=== PATIENT | female | born 2000 | race Caucasian/White ===

== ENCOUNTER 2021-05-06 12:08 | Outpatient (CLI) | payer OTHER, SELFPAY ==
--- NOTE | ~2021-05-06 | US_ITS ---
EXAMINATION: US OB <=14 wk fetus w TV DATE: 05/06/2021 12:41 INDICATION: Evaluate viability TECHNIQUE: Real-time transabdominal and transvaginal obstetric ultrasound. FINDINGS: No prior studies for comparison. The uterus measures 7.9 x 4.4 x 5.3 cm. There is an intrauterine gestational sac, with pole juan manuel ntified. The crown rump length measures 0.25 cm, which correlates with a estimated gestational age o f 5 weeks 6 days. No heart motions are detected, possibly due to age. Right ovary is unre markable. There is 1.9 cm corpus luteal cyst of the left ovary. IMPRESSION: 1. Intrauterine gestational sac responding to a 5 week 6 day gestation. No heart motions are de tected, possibly due to early gestational age. Recommend follow-up ultrasound and quantitative beta h CG levels as clinically indicated. Reviewed, dictated and finalized at location B. IMPRESSION: 1. Intrauterine gestational sac responding to a 5 week 6 day gestation. No feta l heart motions are detected, possibly due to early gestational age. Recommend follow-up ultrasound and quantitative beta hCG levels as clinically indicated.
[2021-05-10 06:09] LABS: Progesterone 9.2 ng/mL (***)
== END 2021-05-06 12:09 | disposition home or self-care (01) ==
PROVIDERS: PCP Family Medicine; Visit Provider Obstetrics & Gynecology
DX: O36.8390 Maternal care for abnormalities of the fetal heart rate or rhythm, unspecified trimester, not applicable or unspecified (principal); O20.0 Threatened abortion; Z3A.01 Less than 8 weeks gestation of pregnancy
CPT/HCPCS: 36415; 76801; 76817; 84144; 84702

== ENCOUNTER 2021-05-09 16:30 | Outpatient (CLI) | payer OTHER, SELFPAY | END 2021-05-09 16:31 | disposition home or self-care (01) | PROVIDERS: PCP Family Medicine; Visit Provider Obstetrics & Gynecology | DX: O20.0 Threatened abortion (principal) | CPT/HCPCS: 36415; 84702 ==

== ENCOUNTER 2021-05-13 13:46 | Outpatient (CLI) | payer OTHER, SELFPAY ==
--- NOTE | ~2021-05-13 | US_ITS ---
EXAMINATION: US OB <=14 wk fetus w TV DATE: 05/13/2021 14:44 INDICATION: Threatened . Evaluate viability. TECHNIQUE: Real-time transabdominal and transvaginal obstetric ultrasound. FINDINGS: Recent ultrasound dated 05/06/2021 The uterus measures 8.3 x 4.4 x 4.8 cm. There is an intrauterine gestational sac, with pole juan manuel ntified. The crown rump length measures 0.68 cm. heart tones are identified measuring 129 bpm. There is a small subchorionic hemorrhage measuring 5 x 4 x 3 mm. Right ovary is unremarkable. There is a 1.8 cm corpus luteal cyst of the left ovary. Small amount of free fluid in the cul-de-sac. IMPRESSION: 1. SL IUP with an EGA of 6 weeks, 6 days (EDC by initial ultrasound of 12/31/2021). 2: Small subchorionic hemorrhage measuring 5 x 4 x 3 mm. 3: Corpus luteal cyst of the left ovary measuring 1.8 cm. Reviewed, dictated and finalized at location A. IMPRESSION: 1. SL IUP with an EGA of 6 weeks, 6 days (EDC by initial ultrasound of 12/31/19). 2: Small subchorionic hemorrhage measuring 5 x 4 x 3 mm. 3: Corpus luteal cyst of the left ovary measuring 1.8 cm.
== END 2021-05-13 13:47 | disposition home or self-care (01) ==
LOC: ANHIMG 13:50
PROVIDERS: PCP Family Medicine; Visit Provider Obstetrics & Gynecology
DX: O20.0 Threatened abortion (principal); Z3A.01 Less than 8 weeks gestation of pregnancy; O36.8911 Maternal care for other specified fetal problems, first trimester, fetus 1; N83.12 Corpus luteum cyst of left ovary
CPT/HCPCS: 76801; 76817

== ENCOUNTER 2021-07-11 23:53 | Emergency (ER) | payer OTHER, SELFPAY ==
--- NOTE | ~2021-07-11 | XR_ITS ---
EXAMINATION: XR chest 2V DATE: 07/12/2021 00:32 INDICATION: Chest pain TECHNIQUE: PA and lateral views of the chest are obtained. COMPARISON: None available FINDINGS: The lungs are free of acute opacities. There is no pleural effusion or pneumothorax. The ca rdiomediastinal silhouette is normal. The visualized bones and soft tissues are unremarkable. IMPRESSION: 1. No acute cardiopulmonary abnormality. Reviewed, dictated and finalized at location B.
[2021-07-11 23:55] VITALS: BP 119/71; PULSE 85; RESP 16; TEMP 36.2; O2SAT 98
[2021-07-12 00:16] LABS: Basophils Percent Auto 0.3 % (0.2-1.2); Eosinophils Percent Auto 0.3 % (0-4.4); Hematocrit 37.3 % (37.0-47.0); Hemoglobin 12.9 g/dL (12.0-15.0); Immature Granulocyte Absolute 0.04 K/mm3 (0.00-0.031); Immature Granulocyte Percent A 0.4 % (0-0.5); Lymphocytes Absolute Auto 2.17 K/mm3 (0.9-3.2); Lymphocytes Percent Auto 20.8 % (18.3-44.2); Mean Corpuscular HGB Conc 34.6 g/dl (32-36); Mean Corpuscular Hemoglobin 29.9 pg (26-34); Mean Corpuscular Volume 86.5 fl (80-100); Mean Platelet Volume 10.5 fl (7.4-10.4); Monocytes Absolute Auto 0.6 K/mm3 (0.1-0.6); Monocytes Percent Auto 5.8 % (2.6-8.5); Neutrophils Absolute Auto 7.6 K/mm3 (1.3-6.7); Neutrophils Percent Auto 72.4 % (45.5-73.1); Platelet Count Result 295 k/mm3 (150-375); Red Blood Count 4.31 M/mm3 (4.2-5.4); White Blood Count 10.5 K/mm3 (4.5-10.0)
[2021-07-12 00:32] LABS: Prothrombin Time 13.1 Seconds (11.1-14.7)
[2021-07-12 00:33] LABS: Anion Gap 9 mmol/L (8-16); Blood Urea Nitrogen 3 mg/dL (7-17); Calcium 9.7 mg/dL (8.4-10.2); Carbon Dioxide 19 mmol/L (22-30); Chloride 106 mmol/L (98-107); Estimated CRCL calculation 222 ml/min; Estimated Glomerular Filt Rate > 60; Glucose 99 mg/dL (65-110); Partial Thromboplastin Time 27.4 SECONDS (22.3-36.8); Potassium 3.5 mmol/L (3.4-5.0); Sodium 134 mmol/L (137-145)
[2021-07-12 00:44] LABS: Troponin I < 0.012 ng/mL (0.000-0.034)
--- NOTE | 2021-07-12 00:56 | ECG_ITS ---
Measurements Intervals [place] Rate: 77 P: 50 HI: 125 QRS: 63 QRSD: 94 T: 34 QT: 384 QTc: 436 Interpretive Statements SINUS RHYTHM BORDERLINE ST-T WAVE ABNORMALITY- ANT/INF LEADS BASELINE ARTIFACT- I, III, AVL BORDERLINE ECG Electronically Signed On 07-12-2021 7:34:02 CDT by Tristan Ingram D.O.
--- NOTE | 2021-07-12 00:58 | ED.GENADULT ---
HPI - General Adult General Chief complaint: Chest Pain Stated complaint: chest pain Time Seen by Provider: 07/12/21 00:44 History of Present Illness HPI narrative: Patient 21-year-old female presents to emergency department with chief complain of chest pain. The patient reports that she is approximately 15 to 17 weeks and reports this evening she started having a discomfort on the left side of her chest. Patient states achy-like pain reports is worse improved with rest. Patient does report that she has had some nausea and vomiting. Patient states that it is improved with rest. Patient denies diaphoresis reports she has a little bit of shortness of breath with it patient denies fever reports she has not been vaccinated for COVID-19. Related Data Home Medications Medication Instructions Recorded Confirmed omeprazole 20 mg tablet,delayed 20 mg PO DAILY PRN 06/18/20 05/10/21 release docosahexaenoic acid 200 mg capsule mg PO 05/06/21 05/10/21 fluoxetine 10 mg capsule 10 mg PO DAILY cap 05/10/21 05/10/21 Allergies Allergy/AdvReac Type Severity Reaction Status Date / Time No Known Allergies Allergy Verified 06/27/21 14:28 Review of Systems Review of Systems: A 10 system review of systems was completed on the patient and is negative except for what is stated in the HPI. Nursing and ancillary documentation was reviewed. [facility] Past Medical History Medical History Asthma COVID-19 (11/27/20) Gastro-esophageal reflux disease without esophagitis Surgical History Surgical History [place] teeth removed Family History Family History Grandparent Family history of malignant neoplasm of cervix Social History Social History Smoking status: Never smoker Second hand tobacco smoke exposure: No Alcohol intake: never Substance use: never Exam Narrative: GENERAL: Well-appearing, well-nourished, and in no acute distress. HEAD: Normocephalic, atraumatic. EYES: PERRLA and EOMI. ENT: Nares clear, no rhinorrhea or epistaxis. Mucous membranes moist. NECK: Supple. CHEST: Clear to auscultation. No respiratory distress. Chest wall is tender to palpation in the left sternal border HEART: Regular rate and rhythm. No murmur heard. Normal peripheral pulses. ABDOMEN: Soft, nontender, nondistended, normal active bowel sounds. EXTREMITIES: Normal range of motion. No edema. SKIN: Warm, dry, no rash. NEURO: No focal deficits. Alert and oriented x3. PSYCH: Normal mood and affect. Course Course Emergency Course: EKG shows a sinus rhythm rate of [address] elevation or ST depression Vital Signs Vital signs: Vital Signs Temperature 36.2 C L 07/11/21 23:55 Pulse Rate 85 07/11/21 23:55 Respiratory Rate 16 07/11/21 23:55 Blood Pressure 119/71 07/11/21 23:55 Pulse Oximetry 98 07/11/21 23:55 Temperature 36.2 C L 07/11/21 23:55 Pulse Rate 66 07/12/21 01:45 Respiratory Rate 21 H 07/12/21 01:45 Blood Pressure 106/92 H 07/12/21 01:31 Pulse Oximetry 97 07/12/21 01:45 Medical Decision Making Vital Signs Vital Signs: Vital Signs Temperature 36.2 C L 07/11/21 23:55 Pulse Rate 85 07/11/21 23:55 Respiratory Rate 16 07/11/21 23:55 Blood Pressure 119/71 07/11/21 23:55 Pulse Oximetry 98 07/11/21 23:55 Temperature 36.2 C L 07/11/21 23:55 Pulse Rate 66 07/12/21 01:45 Respiratory Rate 21 H 07/12/21 01:45 Blood Pressure 106/92 H 07/12/21 01:31 Pulse Oximetry 97 07/12/21 01:45 Lab Data Result diagrams: 07/12/21 00:09 07/12/21 00:09 Labs: Lab Results 07/12/21 07/12/21 07/12/21 Range/Units 00:09 00:09 00:09 WBC 10.5 H (4.5-10.0) K/mm3 RBC 4.31 (4.2-5.4) M/mm3 Hgb 12
[2021-07-12 01:09] LABS: D Dimer 0.47 ug/mL (<0.48)
[2021-07-12] MEDS: SODIUM CHLORIDE 0.9% IV 1,000 ML 999 ML IV CONT (01:12)
[2021-07-12] MEDS: ASPIRIN 81 MG CHEWABLE TABLET 324 MG PO (01:12)
[2021-07-12] MEDS: METOCLOPRAMIDE HCL INJ 10 MG/2 ML VIAL IV PUSH (01:13)
[2021-07-12 01:15] VITALS: PULSE 78; RESP 14; O2SAT 99
[2021-07-12 01:16] VITALS: BP 116/81; PULSE 97; RESP 17; O2SAT 96
[2021-07-12 01:30] VITALS: PULSE 78; RESP 14; O2SAT 100
[2021-07-12 01:31] VITALS: BP 106/92; PULSE 76; RESP 21; O2SAT 100
[2021-07-12 01:45] VITALS: PULSE 66; RESP 21; O2SAT 97
[2021-07-12 02:35] VITALS: BP 118/77; PULSE 72; RESP 18; O2SAT 100
== END 2021-07-12 02:36 | disposition home or self-care (01) ==
PROVIDERS: Emergency Medicine; Emergency Provider Emergency Medicine; PCP Family Medicine
DX: O26.892 Other specified pregnancy related conditions, second trimester (principal); R07.89 Other chest pain; O99.512 Diseases of the respiratory system complicating pregnancy, second trimester; J45.909 Unspecified asthma, uncomplicated; O99.612 Diseases of the digestive system complicating pregnancy, second trimester; K21.9 Gastro-esophageal reflux disease without esophagitis; Z86.16 Personal history of COVID-19; R94.31 Abnormal electrocardiogram [ECG] [EKG]; Z3A.00 Weeks of gestation of pregnancy not specified
CPT/HCPCS: 36415; 71046; 80048; 84484; 85025; 85380; 85610; 85730; 93005; 96361; 96374; 99284; A9270; J2765; J7030

== ENCOUNTER 2021-07-31 14:05 | Emergency (ER) | payer OTHER, SELFPAY ==
[2021-07-31 14:23] VITALS: BP 123/71; PULSE 78; RESP 16; TEMP 36.7; O2SAT 100
[2021-07-31 14:40] VITALS: BP 123/71; PULSE 78; RESP 18; TEMP 36.7; O2SAT 99
[2021-07-31 14:45] LABS: Basophils Percent Auto 0.3 % (0.2-1.2); Eosinophils Absolute Auto 0.1 K/mm3 (0-0.3); Eosinophils Percent Auto 0.8 % (0-4.4); Hemoglobin 12.1 g/dL (12.0-15.0); Immature Granulocyte Absolute 0.02 K/mm3 (0.00-0.031); Immature Granulocyte Percent A 0.2 % (0-0.5); Lymphocytes Absolute Auto 1.88 K/mm3 (0.9-3.2); Lymphocytes Percent Auto 18.3 % (18.3-44.2); Mean Corpuscular HGB Conc 33.6 g/dl (32-36); Mean Corpuscular Hemoglobin 30.3 pg (26-34); Mean Corpuscular Volume 90.2 fl (80-100); Mean Platelet Volume 10.6 fl (7.4-10.4); Monocytes Absolute Auto 0.5 K/mm3 (0.1-0.6); Monocytes Percent Auto 4.6 % (2.6-8.5); Neutrophils Absolute Auto 7.8 K/mm3 (1.3-6.7); Neutrophils Percent Auto 75.8 % (45.5-73.1); Platelet Count Result 274 k/mm3 (150-375); Red Blood Count 3.99 M/mm3 (4.2-5.4); Red Cell Distribution Width 12.7 % (11.5-14.5); White Blood Count 10.3 K/mm3 (4.5-10.0)
--- NOTE | 2021-07-31 14:49 | ED.ABDPAIN ---
HPI - Abdominal Pain General Chief Complaint: Abdominal Pain Stated Complaint: 18 weeks , abd pain Time Seen by Provider: 07/31/21 14:45 Source: patient Mode of arrival: ambulatory Limitations: no limitations History of Present Illness HPI narrative: Patient is a 20-year-old female, , 18 weeks complaining of lower abdominal pain, 2 out of 10, cramping that started 2 days ago. Patient denies any vaginal bleeding or discharge. Positive for gross movement. Negative for spontaneous rupture of membranes. Patient states that she has had care and ultrasound during this . No complications during this . Related Data Home Medications Medication Instructions Recorded Confirmed omeprazole 20 mg tablet,delayed 20 mg PO DAILY PRN 06/18/20 05/10/21 release docosahexaenoic acid 200 mg capsule mg PO 05/06/21 05/10/21 sertraline 100 mg tablet 100 mg PO DAILY 07/25/21 Allergies Allergy/AdvReac Type Severity Reaction Status Date / Time No Known Allergies Allergy Verified 07/31/21 14:50 Review of Systems Review of Systems: All systems reviewed & are unremarkable except as noted in HPI and below Constitutional: Constitutional: Denies body ache(s), Denies chills, Denies excessive sweating, Denies fatigue, Denies fever(s), Denies headache(s), Denies lethargy, Denies malaise, Denies weakness and Denies weight loss Eyes: Eyes: Denies blurry vision, Denies change in vision and Denies loss of vision ENT: Denies dizziness, Denies ear discharge, Denies headache(s), Denies lip swelling, Denies epistaxis, Denies nasal congestion, Denies neck pain, Denies throat swelling and Denies tongue swelling Cardiovascular: Cardiovascular: Denies chest pain, Denies chest pain at rest, Denies chest pain with activity, Denies diaphoresis, Denies rapid heart rate, Denies edema, Denies irregular heart rhythm, Denies lightheadedness, Denies palpitations, Denies dyspnea and Denies dyspnea on exertion Respiratory: Respiratory: Denies chest congestion, Denies cough, Denies hemoptysis, Denies dyspnea and Denies dyspnea on exertion Gastrointestinal: Gastrointestinal: Denies melena, Denies hematochezia, Denies diarrhea, Denies nausea, Denies vomiting and Denies hematemesis Musculoskeletal: Musculoskeletal: Denies abnormal gait, Denies deformity, Denies joint swelling, Denies limited range of motion, Denies neck pain and Denies numbness Neurologic: Denies Abnormal speech present, Denies abnormal gait, Denies confusion, Denies dizziness, Denies headache(s), Denies focal weakness, Denies loss of vision, Denies numbness, Denies Other visual disturbances, Denies Sensory deficit (Neuro) and Denies weakness Psychiatric: Psychiatric: Denies confusion, Denies depression, Denies auditory hallucinations, Denies homicidal ideation and Denies suicidal ideation Endocrine: Endocrine: Denies cold intolerance, Denies excessive sweating, Denies fatigue, Denies heat intolerance and Denies palpitations Hematologic/Lymphatic: Hematologic/Lymphatic: Denies easy bleeding and Denies easy bruising Allergic/Immunologic: Allergic/Immunologic: Denies lip swelling, Denies throat swelling and Denies tongue swelling PMFSH Past Medical History Medical History Acid reflux Asthma COVID-19 (11/27/20) Gastro-esophageal reflux disease without esophagitis Surgical History Surgical History [place] teeth removed Family History Family History Grandparent Family history of malignant neoplasm of cervix Social History Social History Smoking status: Never smoker Second hand tobacco smoke exposure: No Alcohol intake: never Substance use: never Exam Const: General: cooperative, healthy appearing, comfortable, no acute distres
[2021-07-31 14:54] LABS: Alanine Aminotransferase 13 U/L (4-35); Albumin Level 3.8 g/dL (3.5-5.1); Alkaline Phosphatase 50 U/L (38-126); Anion Gap 6 mmol/L (8-16); Aspartate Amino Transferase 18 U/L (14-36); Bilirubin,Total 0.4 mg/dL (0.2-1.3); Blood Urea Nitrogen 2 mg/dL (7-17); Calcium 9.1 mg/dL (8.4-10.2); Carbon Dioxide 22 mmol/L (22-30); Chloride 107 mmol/L (98-107); Estimated CRCL calculation 221 ml/min; Estimated Glomerular Filt Rate > 60; Glucose 81 mg/dL (65-110); Lipase 40 U/L (23-300); Potassium 3.8 mmol/L (3.4-5.0); Sodium 135 mmol/L (137-145)
[2021-07-31] MEDS: SODIUM CHLORIDE 0.9% IV 1,000 ML 999 ML IV CONT (14:59)
[2021-07-31 15:02] LABS: Add Urine Microscopic? YES; Amorphous Sediment Urine Few; Appearance Urine Cloudy (Clear); Bacteria Urine Trace /hpf; Bilirubin Urine Negative (Negative); Blood Urine Negative (Negative); Color Urine Yellow (Yellow); Glucose Urine UA Negative (Negative); Ketones Urine 1+ mg/dL (Negative); Leukocyte Esterase Ur Negative LEU/UL (Negative); Mucus Urine Rare /lpf; Nitrate Urine Negative (Negative); Protein Urine Negative (Negative); RBC Urine 0-2 /hpf (0-2); Specific Grav Ur 1.012 (1.001-1.035); Squamous Epithelial Cell Urine Few /hpf (Few); Urobilinogen Urine Negative mg/dL (<2.0); WBC Urine 0-3 /hpf
[2021-07-31 16:42] VITALS: BP 115/73; PULSE 80; RESP 18; O2SAT 99
== END 2021-07-31 16:44 | disposition home or self-care (01) ==
PROVIDERS: Emergency Provider Emergency Medicine; PCP Family Medicine
DX: O26.892 Other specified pregnancy related conditions, second trimester (principal); Z3A.18 18 weeks gestation of pregnancy
CPT/HCPCS: 36415; 80053; 81001; 83690; 85025; 96360; 99283; J7030

== ENCOUNTER 2021-10-28 07:24 | Outpatient (CLI) | payer OTHER, SELFPAY | END 2021-10-28 07:25 | disposition home or self-care (01) | LOC: ANHLAB 07:26 | PROVIDERS: PCP Family Medicine; Visit Provider Student in an Organized Health Care Education/Training Program | DX: Z34.90 Encounter for supervision of normal pregnancy, unspecified, unspecified trimester (principal) | CPT/HCPCS: 36415; 86900; 86901 ==

== ENCOUNTER 2021-12-09 02:12 | Inpatient (IN) | payer OTHER, SELFPAY ==
[2021-12-09] VITALS (9 sets, daily range): BP systolic 110–131; BP diastolic 63–79; PULSE 75–97; RESP 16–20; TEMP 36.2–37.3; O2SAT 98–99; BMI 41.8
[2021-12-09] MEDS: LACTATED RINGERS 1,000 ML 125 ML IV CONT (02:46)
[2021-12-09] MEDS: AMPICILLIN 2 GM/NS 100 ML 2 GM/100 ML BAG IVPB (02:47)
[2021-12-09 02:58] LABS: Basophils Absolute Auto 0.1 K/mm3 (0.0-0.1); Basophils Percent Auto 0.3 % (0.2-1.2); Eosinophils Absolute Auto 0.1 K/mm3 (0-0.3); Eosinophils Percent Auto 0.5 % (0-4.4); Hematocrit 35.5 % (37.0-47.0); Hemoglobin 12.4 g/dL (12.0-15.0); Immature Granulocyte Absolute 0.08 K/mm3 (0.00-0.031); Immature Granulocyte Percent A 0.5 % (0-0.5); Lymphocytes Absolute Auto 2.85 K/mm3 (0.9-3.2); Lymphocytes Percent Auto 16.4 % (18.3-44.2); Mean Corpuscular HGB Conc 34.9 g/dl (32-36); Mean Corpuscular Hemoglobin 30.7 pg (26-34); Mean Corpuscular Volume 87.9 fl (80-100); Mean Platelet Volume 10.7 fl (7.4-10.4); Monocytes Absolute Auto 1.3 K/mm3 (0.1-0.6); Monocytes Percent Auto 7.4 % (2.6-8.5); Neutrophils Percent Auto 74.9 % (45.5-73.1); Platelet Count Result 324 k/mm3 (150-375); Red Blood Count 4.04 M/mm3 (4.2-5.4); Red Cell Distribution Width 12.3 % (11.5-14.5); White Blood Count 17.4 K/mm3 (4.5-10.0)
--- NOTE | 2021-12-09 03:02 | LDADM ---
This patient, Eulalia Moore, was admitted to Labor/Delivery/Recovery 105 on 12/09/21 at 02:12. Plans for labor, pain management and were discussed with patient. Patient/family oriented to hospital policies and general routines including ID bracelet, bed and alarms, visiting hours, pain management, procedures, bathroom and other care routines, personal items, smoking policy, room service/diet and guest tray routines, security routines, and visiting hours. Patient/Family are encouraged to report perceived risks to care and to ask questions if they do not understand what they are told or what they should do. See [facility] for further documentation.
--- NOTE | 2021-12-09 03:50 | P.PCNOB_ITS ---
OB - Delivery Note Procedure Delivery date: 12/09/21 Procedure: events: Labor < 37 Weeks Intrapartal events: Precipitous Labor < 3 hours Induction method: none Delivery monitor: external uterine and internal FHT Route of delivery: Laceration Description: Perineal - 1st Degree Delivery repair: vicryl (3-0) Specimen: No Quantitative Blood Loss (ml): 279 Anesthesia type: Local Disposition: floor [place] Baby Date of : 12/09/21 Time of : 03:30 Weeks of gestation at delivery: 36 gender: Female Weight (pounds): 6 Weight (ounces): 11 presentation: vertex position: Right Occiput Anterior Placenta delivery description: Spontaneous cord vessel description: 3 Vessels and Clamped/Cut score one minute: 9 score five minutes: 9
[2021-12-09] MEDS: METHYLERGONOVINE MALEATE 0.2 MG/ML VIAL IM (06:24)
[2021-12-09] MEDS: BENZOCAINE 20% AER SPR (*SP) 56 GM CAN 1 SPRAY (06:25)
[2021-12-09] MEDS: WITCH HAZEL 40 PADS 1 PAD (06:25)
--- NOTE | 2021-12-09 06:50 | OBPPTRN ---
0627 Patient transferred to post room #285 via W/C. Support person present. Oriented to unit, room, information board, rooming in, admission packet and security measures. Patient verbalizes understanding.
--- NOTE | 2021-12-09 08:34 | PC.NURSE ---
Mother verbalizes she is able to independently latch with appropriate positioning/alignment. She denies any nipple discomfort, is feeding as required and waking to feed if needed. Infant has had [# of feedings] effective feedings in the past 24 hours, and is currently meeting outcomes for weight, output, jaundice and feeding frequencies. Mother states she feels confident to continue effective at home. Reviewed transition to breast milk, signs of adequate intake, and engorgement/relief. Instructed to call ICP if intake/output less than required. Reviewed regular medications mother is taking. Information provided per Lola. Reviewed community resources on the [facility] website and in the Mom/Baby guide. Information on outpatient services provided. Mother has no further questions at this time.
[2021-12-09 11:22] LABS: Rapid Plasma Reagin Non-Reactive (NonReactive)
--- NOTE | 2021-12-09 13:00 | PC.NURSE ---
0730 - Mother verbalizes she is able to independently latch with appropriate positioning/alignment. She denies any nipple discomfort, is feeding as required and waking to feed if needed. is currently meeting outcomes for weight, output, jaundice and feeding frequencies. Mother states she does not require feeding assist/education at this time. Reviewed resources in the Mom/Baby guide. Instructed mother to call out for future feedings for a latch assessment. 0840 - Consulted with patient, reviewed feeding cues, frequencies, duration of feedings, feeding elimination flow sheet, and signs of adequate intake. Demonstrated stimulation techniques to wake for feeding. Assisted with to breast. Reviewed positioning/alignment, holding breast and asymmetrical latch on. Infant was able to latch correctly. nursed eagerly, with steady draws and occasional swallowing noted. Reviewed signs of a correct latch, effective nursing and suck swallow ratio. Infant was able to maintain latch without discomfort to mother. Nipple care reviewed. Instructed mother to call out for RN assistance if she is unable to latch infant for feeding or she has discomfort with nursing. Instructed feeding should be initiated three hours from start of last feeding or if feeding cues are noted before. Mother voiced understanding of information shared.
[2021-12-10 05:50] LABS: Hematocrit 29.3 % (37.0-47.0); Hemoglobin 9.8 g/dL (12.0-15.0)
[2021-12-10 08:00] VITALS: BP 112/71; PULSE 82; RESP 16; TEMP 36.6; O2SAT 98
[2021-12-10] MEDS: POLYSACCHARIDE IRON COMPLEX 150 MG CAPSULE PO ×2 (08:02→16:14)
[2021-12-10] MEDS: DOCUSATE SODIUM 100 MG CAPSULE PO ×2 (08:02→16:14)
--- NOTE | 2021-12-10 08:25 | P.PNOB_ITS ---
OB - PN: Subj Subjective Date/time seen: 12/10/21 08:25 She is breastfeding and supplementing. No lightheadedness or dizziness. Patient comments: pain well controlled, tolerating diet and other (Decreasing lochia.) [place] baby status: doing well and nursing well OB - PN: Obj Data Labs CBC & Chem 7: 12/10/21 04:52 Labs: Laboratory Results - last 24 hr 12/09/21 12/10/21 02:42 04:52 Hgb 9.8 L Hct 29.3 L RPR Non-reactive OB - PN A/P Plan day: 1 Plan: routine care Comments: Patient doing well. Continue routine care. Time Spent With Patient Time: Total time spent is greater than 50% in coordination of care (as doc umented) at patient's floor/unit and/or counseling patient: Exam Psych: Affect: normal affect Other: Abd: fundus firm below umbilicus, nontender Perineum: healing Ext: nontender
--- NOTE | 2021-12-10 15:13 | PC.NURSE ---
8264 - Primary RN requested a consult to the room to assist with infant that had been placed skin to skin. RN entered room 285 and mother was feeding infant a bottle. It had also been reported to me that mother had fed the baby a bottle last night as well. Mother states baby wasn't interested and she was going to bottle feed and she might attempt to breastfeed later. Encouraged mother to call out for RN assistance if she is unable to latch infant for feeding or she has discomfort with nursing. Instructed feeding should be initiated three hours from start of last feeding or if feeding cues are noted before. Mother voiced understanding of information shared. Reported to primary RN the new plan. per mothers request.
[2021-12-10 19:07] VITALS: BP 132/79; PULSE 85; RESP 18; TEMP 36.9
[2021-12-11] MEDS: POLYSACCHARIDE IRON COMPLEX 150 MG CAPSULE PO (08:20)
--- NOTE | 2021-12-11 08:33 | PM.OBPNVD ---
OB - PN: Subj Subjective Date/time seen: 12/11/21 08:33 Patient doing well this AM. Denies any pain. Scant lochia. Ambulating well. OB - PN: Obj Data Labs CBC & Chem 7: 12/10/21 04:52 OB - PN A/P Assessment and Plan (1) Normal spontaneous vaginal delivery: Code(s): O80 - Encounter for full-term uncomplicated delivery Status: Acute Assessment and Plan: PPD#2 doing well continue routine care dc home today in stable condition emergency precautions reviewed f/u in office in 4-6 weeks for visit Time Spent With Patient Time: Total time spent is greater than 50% in coordination of care (as documented) at patient's floor/unit and/or counseling patient: Exam Const: General: cooperative, healthy appearing, comfortable and no acute distress GI: Inspection: non-distended GI Palp: Yes Soft to palpation and No Tenderness to palpation present (GI) Other: fundus firm below umbilicus Extrem: Right lower extremity: no edema Left lower extremity: no edema Other: no calf tenderness Psych: Appearance: grossly normal Mental Status: mental status grossly normal
[2021-12-11 08:35] VITALS: BP 119/74; PULSE 75; RESP 18; TEMP 36.8; O2SAT 100
--- NOTE | 2021-12-11 08:37 | PM.OBDSVD ---
DS: Admitting Diagnosis Discharge Date 12/11/21 Admitting Diagnosis Labor OB - DS: Summary OB Procedures : None OB Procedures Intrapartum: Spontaneous Vag Delivery OB Procedures: : None Time Spent with Patient Time attestation: Total time spent providing and/or coordinating discharge services: Discharge Plan Discharge Attending physician on discharge: Maria Isabel Macnia Discharging Clinician: Maria Isabel Mancia Anticipated Discharge Date/Time: 12/11/21 08:37 Patient Disposition: Home, Self-Care Activity: as tolerated and pelvic rest Diet: regular Discharge Instructions: Call office ([phone]) to schedule a visit in 4-6 weeks. You may take Ibuprofen 600mg every 6 hours as needed for pain. Pain medication may make you constipated. It may be helpful to take an [id number] stool softener, such as Colace and/or Senokot, along with the pain medication to help lessen constipation. Call office or go to ED for pain not controlled with medication, headache, chest pain, shortness of breath, fever, chills, persistent nausea or vomiting, severe abdominal pain, heavy vaginal bleeding >2 pads/hour, foul vaginal discharge or odor, or problems with your breasts. Patient Instructions: Antibiotic Form Stand Alone Forms: General Discharge Information Follow-up/Referrals: Maria Isabel Mancia MD [Physician] - Discharge Medications: Continued sertraline 100 mg tablet 100 mg PO DAILY RF: 0 omeprazole 20 mg tablet,delayed release (DR/EC) 20 mg PO DAILY Qty: 30 RF: 11 loratadine [Claritin] 10 mg tablet 10 mg PO DAILY PRN (Reason: allergy symptoms) RF: 0 DHA 200 mg capsule PO RF: 0 Date of admission: 12/09/21 02:12 Primary Care Provider: Dejan Perla Admitting Provider: Maria Isabel Mancia Attending physician on admission: Maria Isabel Mancia Condition: Stable
--- NOTE | 2021-12-11 11:20 | PC.NURSE ---
Patient viewed the discharge video Mother & Baby Care, The First Two Weeks . Patient was given the opportunity and encouraged to ask questions. Patient verbalized understanding of information shared and has been given the mother/baby guide for home reference.
[2021-12-11 11:55] VITALS: BP 113/75; PULSE 80; RESP 16; O2SAT 100
[2021-12-11] MEDS: diphenhydrAMINE HCl CAP 25 MG CAPSULE PO (12:16)
[2021-12-12 11:27] VITALS: BP 136/72; PULSE 82; RESP 20; TEMP 36.9; O2SAT 100
== END 2021-12-11 13:05 | disposition home or self-care (01) | DRG 807 ==
LOC: ANHLDR 05:58 → ANHOB2 06:48
PROVIDERS: Admitting Provider Obstetrics & Gynecology; PCP Family Medicine; Visit Provider Student in an Organized Health Care Education/Training Program
DX: O62.3 Precipitate labor (principal); Z37.0 Single live birth; O70.0 First degree perineal laceration during delivery; Z3A.36 36 weeks gestation of pregnancy; Z23 Encounter for immunization
CPT/HCPCS: 36415; 84112; 85014; 85018; 85025; 86592; 86850; 86900; 86901; 90471; 90653; A9270; G0008; J0290; J2210; J2795; J7120

== ENCOUNTER 2023-07-06 08:43 | Emergency (ER) | payer OTHER, SELFPAY ==
--- NOTE | 2023-07-06 08:48 | ED.URI ---
HPI - URI/Sore Throat General Chief Complaint: Upper Respiratory Infection Stated Complaint: Sore Throat Time Seen by Provider: 07/06/23 09:05 Source: patient and RN notes reviewed Mode of arrival: ambulatory Limitations: no limitations History of Present Illness HPI Narrative: 23-year-old female presents with concern for sore throat, fever, body aches. She reports her symptoms started yesterday. Reports her has similar symptoms. She reports mild runny nose. She reports occasional headache. She denies nasal congestion, stomachache. MD elicited complaint: sore throat Related Data Home Medications Medication Instructions Recorded Confirmed loratadine 10 mg tablet (Claritin) 10 mg PO DAILY PRN allergy symptoms 09/30/21 07/06/23 sertraline 100 mg tablet 150 mg PO DAILY 08/29/22 07/06/23 bupropion HCl 150 mg 24 hr tablet, 150 mg PO QAM 09/29/22 07/06/23 extended release (Wellbutrin XL) clonazepam 0.5 mg tablet 0.25 mg PO DAILY PRN anxiety 09/29/22 07/06/23 Allergies Allergy/AdvReac Type Severity Reaction Status Date / Time No Known Allergies Allergy Verified 07/06/23 08:52 Review of Systems Review of Systems: CONSTITUTIONAL: Reports malaise, chills, sweats, fever. EYES: Denies visual changes, redness, or discharge. ENT: Reports rhinorrhea, sore throat. Denies congestion, sinus pain, otalgia CARDIOVASCULAR: Denies chest pain, palpitations, or edema. RESPIRATORY: Denies cough. Denies dyspnea. GASTROINTESTINAL: Denies abdominal pain, nausea, vomiting, diarrhea SKIN: Denies rash or itching. MUSCULOSKELETAL: Reports myalgia. NEUROLOGIC: Reports headache. All systems reviewed & are unremarkable except as noted in HPI and below PMFSH Past Medical History Medical History (Updated 07/06/23 @ 09:20 by Erika Angulo NP) Acne Anemia (12/10/21) hemoglobin 9.8 with hematocrit 29.3 on 12/10/2021. Hemoglobin 13.3 with hematocrit 40.8 on 03/31/2022. hemoglobin 13.4 on 09/29/2022. Asthma BMI 40.0-44.9, adult COVID-19 (11/27/20) Diarrhea (~10/2022) Encounter for contraceptive surveillance Encounter for counseling regarding contraception Encounter for visit Encounter for supervision of normal first in second trimester Encounter for supervision of normal first in third trimester size inconsistent with dates Gastro-esophageal reflux disease without esophagitis Iron deficiency (03/31/22) iron 49 with 12% saturation and ferritin 7 with hemoglobin 13.3 on 03/31/2022. Iron 97 with 28% saturation and ferritin 26 with hemoglobin 13.4 on 09/29/2022. Irregular menses Low TSH level (03/31/22) TSH slightly low at 0.3 on 03/31/2022. TSH normal at 4.02 with free T4 0.9 on 09/29/2022. Maxillary sinusitis, acute Menstrual period late Missed period Mixed hyperlipidemia (03/31/22) total cholesterol 246, triglycerides 129, HDL 56, LDL 164 on 03/31/2022. Total cholesterol 233, triglycerides 178, HDL 46, LDL 156 ratio of 5.1 on 09/29/2022. Morbid obesity with BMI of 40.0-44.9, adult Morbid obesity with BMI of 45.0-49.9, adult Nausea and vomiting Normal spontaneous vaginal delivery examination or test, unconfirmed Rh negative status during Right otitis media Tonsillar hypertrophy Tonsillitis (~03/2022) [place] screen 04/18/2022 was negative. Vitamin B12 deficiency (03/31/22) Vitamin B12 low at 383 with goal greater than 400 with folic acid at 18.8 hemoglobin 13.3 on 03/31/2022. Level normal at 1040 with hemoglobin 13.4 on 09/29/2022. Surgical History Surgical History [place] teeth removed Family History Family History Grandparent Family history of malignant neoplasm of cervix Mother Hypertension Social History Social History (Updated 09/29/22 @ 08:32 by Gladys Jo MA) Smoking status: Never smoker Second hand tobacco smoke exp
[2023-07-06 08:57] VITALS: BP 108/73; PULSE 80; RESP 16; TEMP 36.6; O2SAT 98
== END 2023-07-06 09:25 | disposition home or self-care (01) ==
PROVIDERS: Emergency Provider Nurse Practitioner; PCP Family Medicine
DX: J02.0 Streptococcal pharyngitis (principal); J45.909 Unspecified asthma, uncomplicated; K21.9 Gastro-esophageal reflux disease without esophagitis; E78.2 Mixed hyperlipidemia; E66.01 Morbid (severe) obesity due to excess calories; Z68.41 Body mass index [BMI] 40.0-44.9, adult; Z86.16 Personal history of COVID-19
CPT/HCPCS: 87880; 99213; G0463

== ENCOUNTER 2023-09-15 14:44 | Outpatient (CLI) | payer OTHER, SELFPAY ==
[2023-09-15 15:24] LABS: Basophils Percent Auto 0.3 % (0.2-1.2); Eosinophils Absolute Auto 0.1 K/mm3 (0-0.3); Eosinophils Percent Auto 0.7 % (0-4.4); Hematocrit 39.4 % (37.0-47.0); Hemoglobin 13.2 g/dL (12.0-15.0); Immature Granulocyte Absolute 0.03 K/mm3 (0.00-0.031); Immature Granulocyte Percent A 0.3 % (0-0.5); Lymphocytes Absolute Auto 2.01 K/mm3 (0.9-3.2); Lymphocytes Percent Auto 16.8 % (18.3-44.2); Mean Corpuscular HGB Conc 33.5 g/dl (32-36); Mean Corpuscular Hemoglobin 30.6 pg (26-34); Mean Corpuscular Volume 91.4 fl (80-100); Mean Platelet Volume 10.7 fl (7.4-10.4); Monocytes Absolute Auto 0.6 K/mm3 (0.1-0.6); Monocytes Percent Auto 5.4 % (2.6-8.5); Neutrophils Absolute Auto 9.2 K/mm3 (1.3-6.7); Neutrophils Percent Auto 76.5 % (45.5-73.1); Platelet Count Result 312 k/mm3 (150-375); Red Blood Count 4.31 M/mm3 (4.2-5.4); Red Cell Distribution Width 12.6 % (11.5-14.5)
[2023-09-15 15:34] LABS: Anion Gap 9 mmol/L (8-16); Blood Urea Nitrogen 6 mg/dL (7-17); Calcium 9.4 mg/dL (8.4-10.2); Carbon Dioxide 21 mmol/L (22-30); Chloride 107 mmol/L (98-107); Estimated Glomerular Filt Rate > 60; Glucose 107 mg/dL (65-110); Potassium 3.5 mmol/L (3.4-5.0); Sodium 137 mmol/L (137-145)
[2023-09-15 16:24] LABS: Appearance Urine Cloudy (Clear); Bacteria Urine None Seen /hpf; Bilirubin Urine Negative (Negative); Blood Urine Negative (Negative); Color Urine Dark Yellow (Yellow); Glucose Urine UA Negative (Negative); Ketones Urine 2+ mg/dL (Negative); Leukocyte Esterase Ur Trace LEU/UL (NEGATIVE); Mucus Urine Present /lpf; Need Manual Microscopic Reviewed; Nitrate Urine Negative (Negative); Protein Urine Negative (Negative); Specific Grav Ur 1.031 (1.001-1.035); Squamous Epithelial Cell Urine Few /hpf (Few); WBC Urine 0-5 /hpf (0-3); pH Urine 5.5 (5.0-9.0)
[2023-09-15 16:25] LABS: Add Urine Microscopic? YES
== END 2023-09-15 14:45 | disposition home or self-care (01) ==
PROVIDERS: PCP Family Medicine; Visit Provider Obstetrics & Gynecology
DX: O20.0 Threatened abortion (principal); E11.22 Type 2 diabetes mellitus with diabetic chronic kidney disease; I12.9 Hypertensive chronic kidney disease with stage 1 through stage 4 chronic kidney disease, or unspecified chronic kidney disease; N18.4 Chronic kidney disease, stage 4 (severe); Z3A.00 Weeks of gestation of pregnancy not specified
CPT/HCPCS: 36415; 80048; 81001; 84702; 85025

== ENCOUNTER 2023-12-31 12:22 | Emergency (ER) | payer OTHER, SELFPAY ==
[2023-12-31 12:23] VITALS: BP 121/67; PULSE 84; RESP 16; TEMP 36.4; O2SAT 98
--- NOTE | 2023-12-31 12:47 | ED.NAVMDI ---
HPI - Nausea/Vomiting/Diarrhea General Chief complaint: Nausea/Vomiting/Diarrhea <Ledy Garcia PA-C - Last Filed: 12/31/23 14:11> Stated complaint: nausea, vomiting <Ledy Garcia PA-C - Last Filed: 12/31/23 14:11> Time Seen by Provider: 12/31/23 12:37 <Ledy Garcia PA-C - Last Filed: 12/31/23 14:11> History of Present Illness HPI Narrative: 23-year-old female, , currently 21 weeks and 2 days gestation reports for evaluation for nausea and vomiting. Patient states she is head nausea vomiting throughout her entire , around 1-4 episodes of emesis daily. Her OBGYN is Dr. Bo. States she has been trialed on Zofran, Reglan, promethazine and promethazine with some relief. She was started on Tigan yesterday by her OBGYN and is unsure if she has given this medication enough time to work. She called her OBs office today and was advised to come to the ER for further evaluation given she is having difficulty keeping down food and fluids now. She denies abdominal pain, vaginal bleeding or spotting, chest pain shortness of breath, cough or congestion, dysuria, hematuria, urinary frequency or urgency. States she had the same issue with her 1st . States this has been uncomplicated other than diagnosis of marginal cord insertion during her 20 week anatomy scan. <Ledy Garcia PA-C - Last Filed: 12/31/23 14:11> Related Data Home medications: Home Medications Medication Instructions Recorded Confirmed loratadine 10 mg tablet (Claritin) 10 mg PO DAILY PRN allergy symptoms 09/30/21 10/12/23 bupropion HCl 150 mg 24 hr tablet, 150 mg PO . Q.h.s. 10/12/23 10/12/23 extended release (Wellbutrin XL) metoclopramide HCl 5 mg tablet 5 mg PO DAILY 10/12/23 10/12/23 (Reglan) promethazine 25 mg tablet 25 mg PO QID PRN 10/12/23 10/12/23 sertraline 100 mg tablet 200 mg PO . q.h.s. 10/12/23 10/12/23 <Ledy Garcia PA-C - Last Filed: 12/31/23 14:11> Allergies/Adverse reactions: Allergies Allergy/AdvReac Type Severity Reaction Status Date / Time No Known Allergies Allergy Verified 12/31/23 12:23 <Ledy Garcia PA-C - Last Filed: 12/31/23 14:11> Review of Systems Review of Systems: CONSTITUTIONAL: Denies fever, chills, or sweats. EYES: Denies visual changes, redness, or discharge. ENT: Denies rhinorrhea, congestion, sore throat, or otalgia. CARDIOVASCULAR: Denies chest pain, palpitations, or edema. RESPIRATORY: Denies cough or dyspnea. GASTROINTESTINAL: See HPI GENITOURINARY: Denies dysuria or hematuria. SKIN: Denies rash or itching. MUSCULOSKELETAL: Denies back pain, joint pain, or myalgia. NEUROLOGIC: Denies headache, numbness, or weakness. PSYCHIATRIC: Denies anxiety or depression. <Ledy Garcia PA-C - Last Filed: 12/31/23 14:11> [facility] Past Medical History Medical History: Medical History (Updated 12/31/23 @ 14:09 by Ledy Garcia PA-C) Acne Acute non-recurrent maxillary sinusitis Anemia (12/10/21) hemoglobin 9.8 with hematocrit 29.3 on 12/10/2021. Hemoglobin 13.3 with hematocrit 40.8 on 03/31/2022. hemoglobin 13.4 on 09/29/2022. Asthma BMI 40.0-44.9, adult COVID-19 (11/27/20) Diarrhea (~10/2022) Encounter for contraceptive surveillance Encounter for counseling regarding contraception Encounter for visit Encounter for supervision of normal first in second trimester Encounter for supervision of normal first in third trimester size inconsistent with dates Gastro-esophageal reflux disease without esophagitis Iron deficiency (03/31/22) iron 49 with 12% saturation and ferritin 7 with hemoglobin 13.3 on 03/31/2022. Iron 97 with 28% saturation and ferritin 26 with hemoglobin 13.4 on 09/29/2022. Irregular menses Low TSH level (03/31/22) TSH slightly low at 0.3 on 03/31/2022. TSH normal at 4.02 with free T4 0.9 on 09/29/2022. Maxillary sinusitis, acute Menstrual period late Missed
[2023-12-31] MEDS: ONDANSETRON INJ 4 MG/2 ML VIAL IV PUSH (13:03)
[2023-12-31] MEDS: SODIUM CHLORIDE 0.9% IV 1,000 ML 999 ML IV CONT (13:04)
[2023-12-31 13:07] LABS: Appearance Urine Slightly Cloudy (Clear); Blood Urine Negative (Negative); Color Urine Yellow (Yellow); Glucose Urine UA Negative (Negative); Ketones Urine Trace mg/dL (Negative); Nitrate Urine Negative (Negative); Protein Urine 2+ mg/dL (Negative); Specific Grav Ur >= 1.030 (1.001-1.035); pH Urine 6.5 (5.0-9.0)
[2023-12-31 13:08] LABS: Add Urine Microscopic? YES; Bilirubin Urine 1+ (Negative); Leukocyte Esterase Ur Negative LEU/UL (Negative)
[2023-12-31 13:16] LABS: Basophils Percent Auto 0.3 % (0.2-1.2); Eosinophils Absolute Auto 0.1 K/mm3 (0-0.3); Eosinophils Percent Auto 0.5 % (0-4.4); Hematocrit 36.1 % (37.0-47.0); Hemoglobin 12.2 g/dL (12.0-15.0); Immature Granulocyte Absolute 0.06 K/mm3 (0.00-0.031); Immature Granulocyte Percent A 0.4 % (0-0.5); Lymphocytes Absolute Auto 2.17 K/mm3 (0.9-3.2); Lymphocytes Percent Auto 14.8 % (18.3-44.2); Mean Corpuscular HGB Conc 33.8 g/dl (32-36); Mean Corpuscular Hemoglobin 31.4 pg (26-34); Mean Corpuscular Volume 92.8 fl (80-100); Mean Platelet Volume 10.6 fl (7.4-10.4); Monocytes Absolute Auto 0.8 K/mm3 (0.1-0.6); Monocytes Percent Auto 5.3 % (2.6-8.5); Neutrophils Absolute Auto 11.5 K/mm3 (1.3-6.7); Neutrophils Percent Auto 78.7 % (45.5-73.1); Platelet Count Result 272 k/mm3 (150-375); Red Blood Count 3.89 M/mm3 (4.2-5.4); Red Cell Distribution Width 12.3 % (11.5-14.5); White Blood Count 14.6 K/mm3 (4.5-10.0)
[2023-12-31 13:17] LABS: Mucus Urine Present /lpf; Squamous Epithelial Cell Urine Moderate /hpf (Few); WBC Urine 0-5 /hpf
[2023-12-31 13:27] LABS: Alanine Aminotransferase 10 U/L (6-35); Albumin Level 3.7 g/dL (3.5-5.1); Alkaline Phosphatase 66 U/L (38-126); Anion Gap 6 mmol/L (8-16); Aspartate Amino Transferase 18 U/L (14-36); Bilirubin,Total 0.4 mg/dL (0.2-1.3); Blood Urea Nitrogen 5 mg/dL (7-17); Calcium 9.1 mg/dL (8.4-10.2); Carbon Dioxide 23 mmol/L (22-30); Chloride 107 mmol/L (98-107); Estimated CRCL calculation 185 ml/min; Estimated Glomerular Filt Rate > 60; Glucose 75 mg/dL (65-110); Potassium 3.9 mmol/L (3.4-5.0); Sodium 136 mmol/L (137-145)
[2023-12-31 15:08] VITALS: BP 125/62; PULSE 75; RESP 16; O2SAT 97
== END 2023-12-31 15:08 | disposition home or self-care (01) ==
PROVIDERS: Emergency Provider Physician Assistant; PCP Family Medicine
DX: O21.9 Vomiting of pregnancy, unspecified (principal); O99.012 Anemia complicating pregnancy, second trimester; D50.0 Iron deficiency anemia secondary to blood loss (chronic); O99.512 Diseases of the respiratory system complicating pregnancy, second trimester; J45.909 Unspecified asthma, uncomplicated; O99.282 Endocrine, nutritional and metabolic diseases complicating pregnancy, second trimester; E78.2 Mixed hyperlipidemia; E53.8 Deficiency of other specified B group vitamins; O99.612 Diseases of the digestive system complicating pregnancy, second trimester; K21.9 Gastro-esophageal reflux disease without esophagitis; O99.212 Obesity complicating pregnancy, second trimester; E66.01 Morbid (severe) obesity due to excess calories; Z86.16 Personal history of COVID-19; Z3A.21 21 weeks gestation of pregnancy
CPT/HCPCS: 36415; 80053; 81001; 85025; 96361; 96374; 99284; J2405; J7030

== ENCOUNTER 2024-04-23 08:05 | Inpatient (IN) | payer OTHER, SELFPAY ==
[2024-04-23] VITALS (23 sets, daily range): BP systolic 75–128; BP diastolic 48–100; PULSE 68–259; RESP 16; TEMP 36.6–36.8; O2SAT 100
[2024-04-23] MEDS: LACTATED RINGERS 1,000 ML 125 ML IV CONT (09:15)
--- NOTE | 2024-04-23 09:39 | WPDOBADMIT ---
Obstetrics - Admit Note Admission Note: record reviewed. No pertinent additions to the history and/or any subsequent changes in the physical findings that are not consistent with the expected course of the were found. Additions to the history and/or subsequent changes in the physical findings follow. admit for SROM, forebag ruptured AROM. IUPC placed. SVE 4-5/70/-2, anticipate vaginal delivery
[2024-04-23 09:46] LABS: Basophils Absolute Auto 0.1 K/mm3 (0.0-0.1); Basophils Percent Auto 0.3 % (0.2-1.2); Eosinophils Absolute Auto 0.1 K/mm3 (0-0.3); Eosinophils Percent Auto 0.7 % (0-4.4); Hematocrit 39.5 % (37.0-47.0); Hemoglobin 13.1 g/dL (12.0-15.0); Immature Granulocyte Absolute 0.13 K/mm3 (0.00-0.031); Immature Granulocyte Percent A 0.8 % (0-0.5); Lymphocytes Absolute Auto 3.04 K/mm3 (0.9-3.2); Lymphocytes Percent Auto 18.4 % (18.3-44.2); Mean Corpuscular HGB Conc 33.2 g/dl (32-36); Mean Corpuscular Hemoglobin 30.9 pg (26-34); Mean Corpuscular Volume 93.2 fl (80-100); Mean Platelet Volume 11.4 fl (7.4-10.4); Monocytes Absolute Auto 0.9 K/mm3 (0.1-0.6); Monocytes Percent Auto 5.6 % (2.6-8.5); Neutrophils Absolute Auto 12.3 K/mm3 (1.3-6.7); Neutrophils Percent Auto 74.2 % (45.5-73.1); Platelet Count Result 255 k/mm3 (150-375); Red Blood Count 4.24 M/mm3 (4.2-5.4); Red Cell Distribution Width 12.5 % (11.5-14.5); White Blood Count 16.6 K/mm3 (4.5-10.0)
[2024-04-23 10:35] LABS: HIV 1/2 Ab P24 Ag Result Negative (Negative)
[2024-04-23] MEDS: OXYTOCIN 30 UNITS/NS 500 ML 30 UNITS/500 ML BAG IV CONT (10:38)
--- NOTE | 2024-04-23 10:41 | LDADM ---
This patient, Eulalia Torres, was admitted to Labor/Delivery/Recovery 107 on 04/23/24 at 08:05. Plans for labor, pain management and were discussed with patient. Patient/family oriented to hospital policies and general routines including ID bracelet, bed and alarms, visiting hours, pain management, procedures, bathroom and other care routines, personal items, smoking policy, room service/diet and guest tray routines, security routines, and visiting hours. Patient/Family are encouraged to report perceived risks to care and to ask questions if they do not understand what they are told or what they should do. See OBIX for further documentation.
--- NOTE | 2024-04-23 12:16 | PM.OBPRVD ---
OB - Vaginal Delivery Note Procedure Delivery date: 04/23/24 Intrapartal Events: Decelerations Induction method: None Delivery augmentation: Rupture of Membranes and Pitocin Delivery monitor: Internal FHT and Internal Uterine Route of delivery: Laceration Description: None Specimen: No Quantitative Blood Loss (ml): 150 Anesthesia type: None Disposition: Floor [place] Baby Date of : 04/23/24 Time of : 12:07 Weeks of gestation at delivery: 37 gender: Male Weight (pounds): 7 Weight (ounces): 3 presentation: vertex position: Left Occiput Anterior Placenta delivery description: Spontaneous Cord Vessel Description: 3 Vessels, Clamped/Cut and Delayed Cord Clamping score one minute: 8 score five minutes: 9 Narrative: mother and baby in stable condition
[2024-04-23] MEDS: OXYTOCIN 30 UNITS/NS 500 ML 30 UNITS/500 ML BAG 125 UNITS IV CONT (12:43)
[2024-04-23] MEDS: IBUPROFEN 600 MG TABLET PO ×2 (13:38→21:18)
[2024-04-23] MEDS: WITCH HAZEL 40 PADS 1 PAD TOPICAL (14:19)
[2024-04-23] MEDS: BENZOCAINE 20% AER SPR (*SP) 56 GM CAN 1 SPRAY TOPICAL (14:19)
--- NOTE | 2024-04-23 14:53 | OBPPTRN ---
1430 - Patient Eulalia Lewis transferred to post room #288 via Wheelchair, baby David at her side in crib. Support person present. Oriented to unit, room, information board, rooming in, admission packet and security measures. Patient verbalizes understanding. Pit hung and resumed at this time.
[2024-04-23] MEDS: DOCUSATE SODIUM 100 MG CAPSULE PO (16:18)
[2024-04-24 00:45] VITALS: BP 115/79; PULSE 68; RESP 16; TEMP 36.4; O2SAT 100
[2024-04-24] MEDS: IBUPROFEN 600 MG TABLET PO ×2 (03:56→09:44)
[2024-04-24 04:16] LABS: Hematocrit 31.9 % (37.0-47.0); Hemoglobin 10.8 g/dL (12.0-15.0)
[2024-04-24 09:15] VITALS: BP 115/67; PULSE 76; RESP 16; TEMP 36.4; O2SAT 99
[2024-04-24] MEDS: DOCUSATE SODIUM 100 MG CAPSULE PO (09:44)
[2024-04-24] MEDS: MULTIVIT/MIN/PREN/FOL AC/IRON TABLET 1 TAB PO (09:44)
[2024-04-24] MEDS: WITCH HAZEL 40 PADS 1 PAD TOPICAL (09:45)
--- NOTE | 2024-04-24 11:58 | PM.OBPNVD ---
OB - PN: Subj Subjective Date/time seen: 04/24/24 11:58 Interval history: doing well desires d/c OB - PN: Obj Data Labs 04/24/24 03:51 Labs: Laboratory Results - last 24 hr 04/24/24 03:51 Hgb 10.8 L Hct 31.9 L OB - PN A/P Plan day: 1 Plan: routine care and discharge home Time Spent With Patient Time: Total time spent is greater than 50% in coordination of care (as documented) at patient's floor/unit and/or counseling patient: Review of Systems Review of Systems: All systems reviewed & are unremarkable except as noted in HPI and below Exam Const: General: cooperative and healthy appearing Resp: Effort & Inspection: normal respiratory effort Cardio: Rate: regular rate Rhythm: regular rhythm Skin: General skin exam: normal color Neuro: General: patient oriented x3
--- NOTE | 2024-04-24 12:00 | PM.OBDSVD ---
DS: Admitting Diagnosis Discharge Date 04/24/24 Admitting Diagnosis srom DS: Discharge Diagnosis Discharge Diagnosis (1) Vaginal delivery: Code(s): O80 - Encounter for full-term uncomplicated delivery Status: Acute OB - DS: Summary OB Procedures : None OB Procedures Intrapartum: Spontaneous Vag Delivery OB Procedures: : None Peripartum Data Laceration Description: None Time Spent with Patient Time attestation: Total time spent providing and/or coordinating discharge services: DS: Data Data Completed and Pending Labs on day of discharge: Labs from last 24 hours 04/24/24 03:51 Hgb 10.8 L Hct 31.9 L Discharge Plan Discharge Attending physician on discharge: Navi Bo Consulting providers: Farrah Whitten Discharging Clinician: Farrah Whitten Patient Disposition: Home, Self-Care Activity: pelvic rest Diet: regular Patient Instructions: Antibiotic Form Stand Alone Forms: General Discharge Information Follow-up/Referrals: Farrah Whitten, CNM [Certified Nurse Personnel Monitor] - 4 Weeks Discharge Medications: New ibuprofen 600 mg Tablet 600 mg PO Q6H PRN (Reason: Cramping) Qty: 30 0RF Continued albuterol sulfate 90 mcg/actuation HFA aerosol inhaler 1 - 2 puff inhalation Q4-6H PRN (Reason: shortness of breath or wheezing) Qty: 8.5 11RF Discontinued omeprazole 20 mg tablet,delayed release (DR/EC) 20 mg PO DAILY Qty: 90 3RF Rx Instructions: approved by occupational therapy aides teacher according to patient Date of admission: 04/23/24 08:05 Primary Care Provider: Dejan Perla Admitting Provider: Navi Bo Attending physician on admission: Navi Bo Condition: Stable
[2024-04-24] MEDS: PANTOPRAZOLE 40 MG TABLET (19:20)
[2024-04-24 20:00] VITALS: BP 123/74; PULSE 75; RESP 16; TEMP 36.6; O2SAT 100
--- NOTE | 2024-04-25 07:01 | PM.OBPNVD ---
OB - PN: Subj Subjective Date/time seen: 04/25/24 07:01 Interval history: doing well desires d/c OB - PN: Obj Data Labs 04/24/24 03:51 OB - PN A/P Plan day: 2 Plan: routine care and discharge home Time Spent With Patient Time: Total time spent is greater than 50% in coordination of care (as documented) at patient's floor/unit and/or counseling patient: Review of Systems Review of Systems: All systems reviewed & are unremarkable except as noted in HPI and below Exam Const: General: cooperative and healthy appearing Chest: Chest palpation & inspection: normal inspection of the chest Cardio: Rate: regular rate Rhythm: regular rhythm Skin: General skin exam: normal color
--- NOTE | 2024-04-25 07:02 | P.DS_ITS ---
DS: Admitting Diagnosis Discharge Date 04/25/24 Admitting Diagnosis srom DS: Discharge Diagnosis Discharge Diagnosis (1) Vaginal delivery: Code(s): O80 - Encounter for full-term uncomplicated delivery Status: Acute OB - DS: Summary OB Procedures : None OB Procedures Intrapartum: Spontaneous Vag Delivery OB Procedures: : None Peripartum Data Laceration Description: None Time Spent with Patient Time attestation: Total time spent providing and/or coordinating discharge services: Discharge Plan Discharge Attending physician on discharge: Navi Bo Consulting providers: Farrah Whitten Discharging Clinician: Farrah Whitten Patient Disposition: Home, Self-Care Activity: pelvic rest Diet: regular Patient Instructions: Antibiotic Form Stand Alone Forms: General Discharge Information Follow-up/Referrals: Farrah Whitten CNM [Certified Nurse Timber Treating Tank Operator] - 4 Weeks Discharge Medications: New ibuprofen 600 mg Tablet 600 mg PO Q6H PRN (Reason: Cramping) Qty: 30 0RF Continued albuterol sulfate 90 mcg/actuation HFA aerosol inhaler 1 - 2 puff inhalation Q4-6H PRN (Reason: shortness of breath or wheezing) Qty: 8.5 11RF Discontinued omeprazole 20 mg tablet,delayed release (DR/EC) 20 mg PO DAILY Qty: 90 3RF Rx Instructions: approved by ekg/ecg technician according to patient Date of admission: 04/23/24 08:05 Primary Care Provider: Dejan Perla Admitting Provider: Navi Bo Attending physician on admission: Navi Bo Condition: Stable
[2024-04-25 08:15] VITALS: BP 123/91; PULSE 79; RESP 18; TEMP 36.9; O2SAT 100
[2024-04-25 08:20] LABS: Rapid Plasma Reagin Non-Reactive (NonReactive)
[2024-04-25] MEDS: MULTIVIT/MIN/PREN/FOL AC/IRON TABLET 1 TAB PO (08:29)
--- NOTE | 2024-04-25 10:02 | PC.NURSE ---
Patient instructed on viewing the discharge video Mother & Baby Care, The First Two Weeks . Patient was given the opportunity and encouraged to ask questions. Patient verbalized understanding of information shared and has been given the mother/baby guide for home reference.
[2024-04-27 09:17] VITALS: BP 127/77; PULSE 67; RESP 18; TEMP 37.3; O2SAT 100
== END 2024-04-25 10:50 | disposition home or self-care (01) | DRG 807 ==
LOC: ANHLDR 08:33 → ANHOB2 14:43
PROVIDERS: Advanced Practice Midwife; Admitting Provider Obstetrics & Gynecology; PCP Family Medicine; Visit Provider Obstetrics & Gynecology
DX: O36.8330 Maternal care for abnormalities of the fetal heart rate or rhythm, third trimester, not applicable or unspecified (principal); Z37.0 Single live birth; Z3A.37 37 weeks gestation of pregnancy; O77.0 Labor and delivery complicated by meconium in amniotic fluid; O69.89X0 Labor and delivery complicated by other cord complications, not applicable or unspecified
CPT/HCPCS: 36415; 85014; 85018; 85025; 86592; 86703; 86850; 86900; 86901; A9270; G0432; J2590; J7120

== ENCOUNTER 2025-01-27 09:42 | Outpatient (CLI) | payer OTHER, SELFPAY | END 2025-01-27 09:43 | disposition home or self-care (01) | LOC: MICIMG 09:42 | PROVIDERS: PCP Nurse Practitioner Adult Health; Visit Provider Nurse Practitioner Adult Health | DX: R79.89 Other specified abnormal findings of blood chemistry (principal) | CPT/HCPCS: 76536 ==

== ENCOUNTER 2025-02-11 09:02 | Outpatient (CLI) | payer OTHER, SELFPAY ==
--- OUTSIDE RECORDS SUMMARY | 2025-02-11 09:05 | XMS_ITS ---
Author Organization [facility] [employer] Address [address] [facility] [address] [place] [address] Care Team Providers Care Oracle Specialist Name Role Phone Shanika Knight APRN Primary Care Provider Unaalexy Lópezlawrence Zara Unavailable [phone] Allergies No Known Allergies Results Component Value Reference Range Notes UDT Reviewed date:01/20/2025 09:09:15 AM Interpretation: Performing Lab: Notes/Report: THC POS 0 - 50 ng/ml Cocaine NEG 0 - 300 ng/ml Amphetamine NEG 0 - 1000 ng/ml Buprenorphine (BUP) NEG 0 - 10 ng/ml Secobarbital (Bar) NEG 0 - 300 ng/ml Oxazepam (BZO) POS 0 - 300 ng/ml 8-luslodomea-7,1-ymhaiehi-6,3-diphenylpyrrolidine (MIS P) NEG 0 - 300 ng/ml Methamphetamine (MET) NEG 0 - 1000 ng/ml Methylenedioxymethamphetamine (MDMA) NEG 0 - 500 ng/ml Morphine (MOP 300/MFM4303) NEG 0 - 300 ng/ml Methadone (MTD) NEG 0 - 300 ng/ml Phencyclidine (PCP) NEG 0 - 25 ng/ml Nortriptyline (TCA) NEG 0 - 1000 ng/ml Oxycodone NEG 0 - 300 ng/ml x NEG 0 - 300 ng/ml REASON FOR VISIT checked in, advance care planning, Depression screening positive, UDT Visit, UDT done, Follow up psychological reason Medications Medication SIG (Take, Route, Frequency, Duration) Notes Start Date End Date Status Sertraline HCl 100 MG 1.5 tablet Oral Once a day for 90 days Active buPROPion HCl ER (XL) 150 MG 1 tablet in the morning Orally Once a day for 90 days Active clonazePAM 0.5 MG 1 tablet Orally Once a day for 30 days As needed for anxiety 01/20/2025 Active busPIRone HCl 10 MG 1 tablet Orally Twice a day Active Omeprazole 20 MG Oral 04/12/2024 Ac tive *Pick strength-form from [employer] [facility] eRX* 04/12/2024 Not-Taking Social History Tobacco Use: Social History Observation Description Date Details (start date - stop date) Never Smoker NA - NA Sex Assigned At : Social History Observation Description Sex Assigned At Female Household Question Answer Notes Marital status: Tobacco Control (Standard) Question Answer Notes Tobacco use: Nonsmoker AUDIT-C (Standard) Question Answer Notes Did you have a drink containing alcohol in the p ast year? No Interpretation Positive Vital Signs Blood pressure systolic 121 mm Hg 01/20/20 25 Blood pressure diastolic 78 mm Hg 025 Heart Rate 78 /min 01/20/2025 Height 65.00 in 01/20/2025 Weight 255 lbs 01/20/2025 BMI 42.43 kg/m2 01/20/2025 Height-cm 165.10 cm 01/20/2025 Weight-kg 115.67 kg 01/20/2025 Encounters Encounter Location Date Provider Diagnosis [facility] [employer] [address] [address] 01/20/2025 Zara Clifford Generalized anxiety disorder F41.1 and Major depressive disorder, recurrent, mild F33.0 Assessments Encounter Date Diagnosis (ICD Code) Assessment Notes Treatment Notes Treatment Clinical Notes Section Notes 01/20/2025 Generalized anxiety disorder (ICD-10 - F41.1) Common side effects to SSRI medications include headaches, dry mouth/eye, GI upset (including indigestion, nausea, diarrhea), sleeping problems (insomnia or drowsiness), decreased libido, blurred vision, dizziness. Generally, side effects will subside or lessen with time and are common during drug initiation and dose changes. If they persist please contact the office. Discussed and educated pt regarding benzodiazepines are generally not intended for prolonged use and that use can cause tolerance, dependence, depression, and associated memory issues including dementias (this list is not exhaustive). Benzodiazepine use is generally not recommended concurrently with pain medications and/or other controlled substances due to increased risks of profound sedation, respiratory depression, coma, and even . They are not to be used with any alcohol, as this combination can be lethal. MEDICATION SIDE EFFECTS: none 01/20/2025 Major depressive disorder, recurrent, mild (ICD-10 - F33.0) Common side effects of Wellbutrin include insomnia, increased anxiety, nausea, dizziness, decreased appetite, restlessness, irritability and anger, increased sweating or hot flashes, tremors, joint pain. Wellbutrin is not recommended in individuals with a history of seizures. If side effects persist, please contact the office. MEDICATION SIDE EFFECTS: none 01/20/2025 Other Declines need for medication adjustment, refills sent in. Patient educated on all medications including potential benefits, side effects, risks. Educated on proper dosing schedule and importance of compliance. [place] PDMP report checked and consistent with prescription history, no controlled substance prescriptions from other providers. -Assessment and treatment plan reviewed with patient. -Compliance with treatment plan importance discussed. -Discussed the risks/benefits of this medication -Discussed medication side effects. -Contact office if symptoms worsen. -Discussed that it can take up to 6-8 weeks to see full therapeutic effects of psychotropic medications. -Crisis prevention hotline 988. MEDICATION SIDE EFFECTS: none Plan Of Treatment Medication Medication Name Sig Start Date Stop Date Notes Sertraline HCl 100 MG 1.5 tablet Oral On ce a day for 90 days buPROPion HCl ER (XL) 150 MG 1 tablet in the morning Orally Once a day for 90 days clonazePAM 0.5 MG 1 tablet Orally Once a day for 30 days 01/20/2025 Treatment Notes Assessment Notes Generalized anxiety disorder Common side effects to SSRI medications include headaches, dry mouth/eye, GI upset (including indigestion, nausea, diarrhea), sleeping problems (insomnia or drowsiness), decreased libido, blurred vision, dizziness. Generally, side effects will subside or lessen with time and are common during drug initiation and dose changes. If they persist please contact the office. Discussed and educated pt regarding benzodiazepines are generally not intended for prolonged use and that use can cause tolerance, dependence, depression, and associated memory issues including dementias (this list is not exhaustive). Benzodiazepine use is generally not recommended concurrently with pain medications and/or other controlled substances due to increased risks of profound sedation, respiratory depression, coma, and even . They are not to be used with any alcohol, as this combination can be lethal. Major depressive disorder, r ecurrent, mild Common side effects of Wellbutrin includ e insomnia, increased anxiety, nausea, dizziness, decreased appetite, restlessness, irritability and anger, increased sweating or hot flashes, tremors, joint pain. Wellbutrin is not recommended in individuals with a history of seizures. If side effects persist, please contact the office. Other Declines need for medication adjustment, refills sent in. Patient educated on all medications including potential benefits, side effects, risks. Educated on proper dosing schedule and importance of compliance. [place] PDMP report checked and consistent with prescription history, no controlled substance prescriptions from other providers. Next Appt Details Follow Up: 3 Months, Reason: medication follow up Provider Name:Zara Horton, 04/14/2025 08:15:00 AM, [address], [facility] [address], [place], [address], Progress Notes * MARIA G CARLTONOB:2000 (24 yo F)Acc No.[id number]:01/20/2025 Patient: ARINA PATTERSON Provider: Kvng HORTON PMHNAvelino :2000 A ge:24 Y S ex:Female Date:01/20/2025 [address] [facility] Pcp:Shanika Knight APRN Subjective: * Chief Complaints: * C hecked inAdvance care planningDepression screening positiveUDT VisitUDT doneFollow up psychological reason * HPI: D epression Screening: ABUNDIO-7 (2018 Edition) F eeling nervous, anxious, or on edge S everal days N ot being able to stop or control worrying?Several days W orrying too much about different things M ore than hafl the days T rouble relaxing N early every day B eing so restless that it is hard to sit still S everal days B ecoming easily annoyed or irritable S everal days F eeling afraid as if something awful might happen N ot at all I f you checked any problems, how difficult have they made it for you to do your work, take care of things at home, or get along with other people? V deya difficult [place]-Suicide Severity Rating Scale: Suicide Risk (CSRS-screener) i n the past one month Have you wished you were or wished you could go to sleep and not wake up? N o i n the past one month Have you actually had any thoughts of killing yourself? N o D epression screening: PHQ-9 L ittle interest or pleasure in doing things?Several days F eeling down, depressed, or hopeless N ot at all T rouble falling or staying asleep, or sleeping too much M ore than half the days F eeling tired or having little energy N early every day P oor appetite or overeating M ore than half the days F eeling bad about yourself or that you are a failure, or have let yourself or your family down N ot at all T rouble concentrating on things, such as reading the newspaper or watching television N early every day M oving or speaking so slowly that other people could have noticed; or the opposite, being so fidgety or restless that you have been moving around a lot more than usual S everal days T houghts that you would be better off or of hurting yourself in some way N ot at all T otal Score 1 2 I nterpretation M oderate Depression Intervention D epression Screening Findings P ositve F ollow-Up for Depression [facility], Patient follow-up to return when and if necessary S uicide Risk Assessment Performed _ A dditional Evaluation for Depression P sychiatric interview and evaluation N kaylen of the standardized tool used for adult depression screening: [facility] Health Questionnaire (PHQ-9) H istory of Presenting Problem: Medication Side Effects n one . Anxiety R ates anxiety 6/10 with 10 being most severe. . Depression R ates depression 1/10 with 10 being most severe. Denies SI. . Mood lability n o hx amberly. Psychosis n o hx psychosis. Suicidal ideation d enies. Here for follow up. Sertraline increased last apt. Reports she has not noticed a significant difference. States I cant clear my mind to focus . Anxiety is about the same. Denies panic attacks. Depression I think it is okay . Denies feeling hopeless or helpless, no suicidal ideation. Focus is good for the most part , although struggles with relaxing. When she tries to relax, I have a bunch of other thoughts going through my mind . Sleep is good, getting at least 6 hours nightly. Energy is fair. Appetite is fair. the thought of food is not interesting . P ast Psychiatric Hospitalizations: Previous medications: Paxil (got off this due to ). Reports she has been on some form of antidepressant since about 2013. * ROS: P sychiatric: Patient denies s uicidal thoughts, amberly, psychosis. P atient complains of a nxiety. C kwadwo [facility] for details. P erformance Met: N nathaniel blood pressure reading documented, follow-up not required ( G8783). * Medical History: * Surgical History: W isdom teeth removal 2016 * Hospitalization/Major Diagno stic Procedure: * Family History: F ather: Depressive disorder , Anxiety disorder . U nspecified Relation: Substance abuse .?Mother: Depressive disorder , Anxiety disorder . P aternal Grandmother: Bipolar disorder , Alcohol abuse . * Social History: T obacco Use: T obacco Control (Standard) T obacco use: N onsmoker M igrated Social History: M igrated Social History: Alcohol Intake: Occasional 03/27/2021,Tobacco Years: Never smoker 03/27/2021. D rug/Alcohol: A PHILIPP-C (Standard) D id you have a drink containing alcohol in the past year? N o I nterpretation P ositive H ousehold: H ousehold M arital status: m arried M iscellaneous: O ccupation: Works [id number]. Advance Care Planning A re you your own decision-maker Y es D o you have Power of Manager [employer] for Health or Medical? N o * Medications: T akingbusPIRone HCl 10 MG Tablet 1 tablet Orally Twice a day Omeprazole 20 MG Capsule Delayed Release Oral buPROPion HCl ER (XL) 150 MG Tablet Extended Release 24 Hour 1 tablet in the morning Orally Once a day Sertraline HCl 100 MG Tablet 1.5 tablet Oral Once a day clonazePAM 0.5 MG Tablet 1 tablet Orally Once a day As needed for anxietyTaking busPIRone HCl 10 MG Tablet 1 tablet Orally Twice a day Taking Omeprazole 20 MG Capsule Delayed Release Oral Taking buPROPion HCl ER (XL) 150 MG Tablet Extended Release 24 Hour 1 tablet in the morning Orally Once a day Taking Sertraline HCl 100 MG Tablet 1.5 tablet Oral Once a day Taking clonazePAM 0.5 MG Tablet 1 tablet Orally Once a day As needed for anxietyNot-TakingPrenatal , Notes to Pharmacist: *[facility]*Medication List reviewed and reconciled with the patientNot-Taking , Notes to Pharmacist: *[facility]*Medication List reviewed and reconciled with the patient * Allergies: N .K.D.A.no[Allergies Verified] Objective: * Vitals: B P:121/78mm Hg, HR:78/min, Wt:255lbs, Wt-k.67 kg, Ht: 65.00 in, Ht-cm: 165.10 cm, BMI:42.43Index, Body Surface Area: 2.3. * Examination: P sychiatry: Appearance: w ell-groomed. Abnormal body movements: n one. Affect / mood: d epressed. Attention: g ood. Attitude: c ooperative. Homicidal ideation: n one. Suicidal ideation: n one. Degree of awareness of surroundings: w ithin normal limits.? Delusions: n o. Hallucinations: n o. Insight: g ood. Judgement: g ood. Orientation: a wake, alert and oriented x 3. Perceptual disorders: n o perceptual disorder noted. Psychomotor activity: w ithin normal range. Speech / language: n ormal rate, volume, and articulation (RVR), clear and coherent. Thought content: a ppropriate. Thought process: i ntact. Assessment: * Assessment: 1. G eneralized anxiety disorder - F41.1 (Primary) 2 . M ajor depressive disorder, recurrent, mild - F33.0 MEDICATION SIDE EFFECTS: non e. Plan: * Treatment: 2. M ajor depressive disorder, recurrent, mild Refill buPROPion HCl ER (XL) Tablet Extended Release 24 Hour, 150 MG, 1 tablet in the morning, Orally, Once a day, 90 days, 90 Tablet, Refills 0. Notes: Common side effects of Wellbutrin include insomnia, increased anxiety, nausea, dizziness, decreased appetite, restlessness, irritability and anger, increased sweating or hot flashes, tremors, joint pain. Wellbutrin is not recommended in individuals with a history of seizures. If side effects persist, please contact the office. 3. O niranjan Notes: Declines need for medication adjustment, refills sent in. Patient educated on all medications including potential benefits, side effects, risks. Educated on proper dosing schedule and importance of compliance. [place] report checked and consistent with prescription history, no controlled substance prescriptions from other providers. Clinical Notes: -Assessment and treatment plan reviewed with patient. -Compliance with treatment plan importance discussed. -Discussed the risks/benefits of this medication -Discussed medication side effects. -Contact office if symptoms worsen. -Discussed that it can take up to 6-8 weeks to see full therapeutic effects of psychotropic medications. -Crisis prevention hotline 988. * Labs: * L ab: UDT (Collection Date & Time - 01/20/2025) Value Reference Range T HC POS 0 - 50 ng/ml * C ocaine NEG 0 - 300 ng/ml * A mphetamine NEG 0 - 1000 ng/ml * B uprenorphine (BUP) NEG 0 - 10 ng/ml * S ecobarbital (Bar) NEG 0 - 300 ng/ml * O xazepam (BZO) POS 0 - 300 ng/ml * 2 -ethylidene-1,7-spzvstki-4,3-diphenylpyrrolidine (EDDP) NEG 0 - 300 ng/ml * M ethamphetamine (MET) NEG 0 - 1000 ng/ml * M ethylenedioxymethamphetamine (MDMA) NEG 0 - 500 ng/ml * M orphine (MOP 300/PEB4018) NEG 0 - 300 ng/ml * M ethadone (MTD) NEG 0 - 300 ng/ml * P hencyclidine (PCP) NEG 0 - 25 ng/ml * P ropoxyphene (PPX) NEG 0 - 300 ng/ml * N ortriptyline (TCA) NEG 0 - 1000 ng/ml * O xycodone NEG 0 - 300 ng/ml * Procedure Codes: 9 6127 BEHAV ASSMT W/SCORE & DOCD/STAND [id number] DRUG TST PRSMV READ INSTRMNT ASSTD DIR OPT [id number] NORMAL BP READING DOC F/U NOT [id number] CLIN DEPRESSION SCREEN [id number] VISIT COMPLEXITY INHERENT TO ONGOING CARE RELATED TO A PATIENT'S SINGLE, SERIOUS CONDITION OR A COMPLEX [id number] MOST RECENT SYSTOLIC BP < 140MM [id number] MOST RECENT DIASTOLIC BP < 90MM HG * Preventive Medicine: Counseling: A dvance Care Planning Date of last Advance Care Planning:?01/20/2025 ____ MIPS * Follow Up: 3 Months (Reason: medication follow up) * Billing Information: * Visit Code: 06610 OFFICE OUTPATIENT VISIT 25 MINUTES DETAILED HISTORY AND EXAM/MODERATE MEDICAL DECISION MAKING. * Procedure Codes: 41883 BEHAV ASSMT W/SCORE & DOCD/STAND INSTRUMENT. 28750 DRUG TST PRSMV READ INSTRMNT ASSTD DIR OPT OBS. G8783 NORMAL BP READING DOC F/U NOT RQR. G8431 CLIN DEPRESSION SCREEN DOC. G2211 VISIT COMPLEXITY INHERENT TO ONGOING CARE RELATED TO A PATIENT'S SINGLE, SERIOUS CONDITION OR A COMPLEX CONDITION. G8752 MOST RECENT SYSTOLIC BP < 140MM HG. G8754 MOST RECENT DIASTOLIC BP < 90MM HG. * NTORY PLANNER Sign off status: Completed true * Provider: ALONDRA SUAREZ Date: 0 01/20/2025 Generated for Sameera palma/Luh/Daviditting on: 0 02/11/2025 09:05 AM CDT History and Physical Notes * HPI (History of Present Illness) Category Sub-Category Detail Notes Category Not es History of Presenting Problem Anxiety Rates anxiety 6/10 with 10 b eing most severe. Here for follow up. Sertraline increased last apt. Reports she has not noticed a significant difference. States I cant clear my mind to focus . Anxiety is about the same. Denies panic attacks. Depression I think it is okay . Denies feeling hopeless or helpless, no suicidal ideation. Focus is good for the most part , although struggles with relaxing. When she tries to relax, I have a bunch of other thoughts going through my mind . Sleep is good, getting at least 6 hours nightly. Energy is fair. Appetite is fair. the thought of food is not interesting . Depression Rates depression 1/1 0 with 10 being most severe. Denies SI. Suicidal ideation denies Psychosis no hx psychosis Mood lability no hx amberly Medication Side Effects none Past Psychiatric Hospitalizations Previous medications : Paxil (got off this due to ). Reports she has been on some form of antidepressant since about 2013. Depression screening PHQ-9 Little inte rest or pleasure in doing things: Several days Feeling down, depressed, or hopeless: No t at all Trouble falling or staying a sleep, or sleeping too much: More than half the days Feeling tired or having little energy: N early every day Poor appetite or overeating: More than h jail the days Feeling bad about yourself o r that you are a failure, or have let yourself or your family down: Not at all Trouble concentrating on thi ngs, such as reading the newspaper or watching television: Nearly every day Moving or speaking so slowly that other people could have noticed; or the opposite, being so fidgety or restless that you have been moving around a lot more than usual: Several days Thoughts that you would be b vincent off or of hurting yourself in some way: Not at all Total Score: 12 Interpretation: Moderate Depression Intervention Depression Screening Findings: P ositve Follow-Up for Depression: [facility] treatment assessment, Patient follow-up to return when and if necessary Suicide Risk Assessment Performed: Additional Evaluation for Depression: Ps ychiatric interview and evaluation Name of the standardized too l used for adult depression screening:: Patient Health Questionnaire (PHQ-9) Depression Screening ABUNIDO-7 (2018 Edition) Feelin g nervous, anxious, or on edge: Several days Not being able to stop or control worryi ng: Several days Worrying too much about different things : More than hafl the days Trouble relaxing: Nearly every day Being so restless that it is hard to sit still: Several days Becoming easily annoyed or irritable: Se veral days Feeling afraid as if something awful stephanie ht happen: Not at all If you checked any problems, how difficult have they made it for you to do your work, take care of things at home, or get along with other people?: Very difficult [place]-Suicide Severity Rating Scale Suicide Risk (CSRS-screener) in the past one month Have you wished you were or wished you could go to sleep and not wake up?: No in the past one month Have y ou actually had any thoughts of killing yourself?: No Examination Category Sub-Category Detail Notes Category Not es Psychiatry Appearance: well-groomed Attitude: cooperative Psychomotor activity: within normal rang e Abnormal body movements: none Attention: good Degree of awareness of surroundings: wit hin normal limits Orientation: awake, alert and andreea ented x 3 Affect / mood: depressed Speech / language: normal rate, volume, and articulation (RVR), clear and coherent Insight: good Judgement: good Thought process: intact Thought content: appropriate Perceptual disorders: no perceptual diso rder noted Suicidal ideation: none Homicidal ideation: none Delusions: no Hallucinations: no
--- OUTSIDE RECORDS SUMMARY | 2025-02-11 09:05 | XMS_ITS ---
Author Organization [facility] [employer] [facility] Address [address] [facility] [address] [place] [address] Care Team Providers Care Print Designer Name Role Phone Shanika Knight APRN Primary Care Provider Zara Rothman Unavailable [phone] REASON FOR VISIT RE:question Social History Sex Assigned At : Social History Observation Description Sex Assigned At Female Encounters En[facility] [place] [address] [facility] [address] [place] [address] 02/01/2025 Zara Horton Plan Of Treatment Next Appt Details Provider Name:Zara Horton, 04/14/2025 08:15:00 AM, [address], [facility] [address], [place], [address], Progress Notes * SHERIDANHarshil LUKASZABHIJITOB:2000 (24 yo F)Acc No.[id number]:02/01/2025 Patient: ARINA PATTERSON :2000 A ge:24 Y S ex:Female Address:[address] [place], [address] * true * Date: Generated for Printi ng/Faxing/eTransmitting on: 0 02/11/2025 09:05 AM CDT
--- OUTSIDE RECORDS SUMMARY | 2025-02-11 09:06 | XMS_ITS | Data Portability ---
Author Organization [facility] Address [address] [place] [address] [place] [address] Care Team Providers Care Radiation Officer Name Role Phone CARLO CARO Primary Care Provider [phone] Assessment Encounter Date Assessment Date Assessment LastModified by Organization Details LastModified Time 04/13/2024 04/13/2024 Patient is _36__weeks . Discussed plan. Not available 04/13/2024 12:11:44 04/20/2024 04/20/2024 Patient is _37__weeks . Discussed plan. Not available 04/20/2024 17:06:01 01/20/2025 01/20/2025 Annual gynecological exam performed. Patient will come back in a year unless there are new symptoms. Suggest Calcium with Vitamin D if not eating in diet. Patient advised to get annual flu shot. Recommend yearly physicals and preform monthly breast exams. Genetic testing is available for patients with family history of cancer. Engage in safe sexual practices, use condoms. Encouraged to have daily exercise. Avoid tobacco and illicit drugs, moderation of alcohol. If BMI greater than 25 dietary consult advised. If you have any questions please call or email. pap collected Not available 01/20/2025 11:49:23 Plan of Treatment Reminders Order Date Submit Date Provider Last Modified By Organization Details Last Modified Time Details Appointments None record ed. Lab None record ed. Referral None record ed. Procedures None record ed. Surgeries None record ed. Imaging US, obstet rhiannon, follow -up 024 04/13/20 24 [email or web address] [address], [address], [place], [address], 19:07:50 Medication Orders None record ed. Patient TargetsNo targets recorded. Patient InstructionsNo instructions recorded. Reason for Referral None Reported. Results Created Date Observation Date Name Description Value Unit Range Abnormal Flag Note LastModifiedBy Organization Detail LastModifiedTime 04/13/20 24 04/13/2024 CULTU RE: GROUP B STREP SCREE N, REFLE X SUSCE PTIBI LITY result report SEE RESULT S BELOW Test: Cultu re: Group B Strep , Refle x Susce ptibi lity ([facility]/ [facility] ) Speci men Sourc e: Vagin a/Rec jihan Speci men Type: Vagin al/Re ctal Speci men Date: 2023 1:21 PM Resul t Date: 2023 2:17 PM Resul t Statu s: Final resul t Abnor mal: No Resul ting Lab: [facility] [address] [facility] [address] Tel: CULTU RE ----- ----- ----- --- No Group B strep isola petra at 2 days (rj ctive broth enhan cemen t) Not Available [facility] (Lab) [address] [place], [address], 04/16/2024 15:20:25 01/20/20 25 01/20/2025 IMAGE GUIDE D PAP, REFLE X HPV IF ASCUS ONLY image guided Pap, reflex HPV ASCUS only SEE RESULT S BELOW CASE REPOR T: Cytol ogy Gynec ologi moise Repor t Case: [id number] Autho rirubio g Provi michelle: Farrah Ferreira NP Colle cted: 01/20 1622 Order ing Locat ion: [place] Patho log[facility] Recei demetrius: 01/21 1238 First Scree n: Hazel Harris Rescr een: Joleen Muñoz ay, CT Speci men: Scree oliver Pap - Image d, Cervi x STATE MENT OF ADEQU ACY: Satis facto ry for evalu ation Trans forma tion zone compo nent prese nt ----- ----- ----- ----- ----- ----- ----- ----- ----- ----- ----- ----- ----- ----- ----- ----- ----- ---- FINAL DIAGN OSIS: Negat oral for Intra epith elial Lesio justin or Lelia maciel (NIL) . Elect tata sterling d by Joleen Muñoz , CT on 2024 at 0719 YOGA INSTRUCTOR ----- ----- ----- ----- ----- ----- ----- ----- ----- ----- ----- ----- ----- ----- ----- ----- ----- ---- COMME NT: This speci men was revie wed by a Cytot echno logis t and/o r Patho logis t (as indic ated in this repor t) after evalu ation using the Thinp rep Imagi ng Syste m. CLINI MOISE INFOR MATIO N: Menst rual Statu s: LMP (if appli cable ): Clini moise Histo ry/Pr eviou s Pap: Type of Neopl adin (if appli cable ): Signi fican t Clini moise Findi ngs: Other Histo ry: Hormo ashu (if appli cable ): PAP EDUCA OPHELIA L NOTE: The Pap Test is a scree oliver test with an inher ent false negat oral rate. Liqui d-bas ed sampl ing may decre ase, but will not elimi ruth, false negat oral resul ts. A negat oral resul t does not precl ude the prese nce and/o r devel opmen t of disea se, since the prese nce of abnor mal cells in the sampl e depen ds on the locat ion of the lesio n and sampl ing techn ique. Chintan nued regul ar scree oliver is the best metho d of cance r preve ntion . If repor petra cytol ogic findi ng do not corre late with physi moise and/o r histo rical findi ngs, furth er inves tigat ion is recom charla d, as clini derrek otero nted. Not Available [facility] (Lab) [address], [place], [address], 01/25/2025 19:10:59 03/18/20 24 03/18/2024 US, obste tric, follo w-up No observ ation record ed. [email or web address] [place] [address], [place], [address], 03/18/2024 13:51:56 03/18/20 24 03/18/2024 US, obste tric, follo w-up No observ ation record ed. [email or web address] [address], [place], [address], 03/18/2024 23:15:17 03/30/20 24 03/30/2024 non-s tress test No observ ation record ed. [email or web address] [place] [address], [place], [address], 03/30/2024 11:29:09 04/13/20 24 04/13/2024 US, obste tric, follo w-up No observ ation record ed. [email or web address] [place] [address], [place], [address], 04/13/2024 12:42:28 04/13/20 24 04/13/2024 US, obste tric, follo w-up No observ ation record ed. [email or web address] [address], [place], [address], 04/14/2024 16:02:44 Result Notes None recorded. Problems Name Problem SNOMED Code Status Onset Date Resolution Date Notes Provider Name and Address Organization Details Recorded Time Pregnanc y 82822784 Com[facility] 202205[facility]02[facility] 13:45:14 Prematur e delivery 467911166 Completed 36 and 6 [facility] 4 13:45:08 Depressi ve disorder 70406934 Completed sertrali ne and bupropio n [facility] 4 13:45:08 Marginal insertio n of umbilica l cord 36896866 Completed serial growth [facility] 4 13:45:08 Prophyla ctic immunoth erapy Completed rhogam at 28wks - [facility] 4 13:45:08 Mixed anxiety and depressi ve disorder 484380700 Active [address] [facility] 4 09:42:58 Problem Notes None recorded. Procedures Surgical History Date Name Laterality Status Provider Name and Address Organization Details Recorded Time 5 Date of Last Pap Smear completed Xiomara Manzano [facility] 01/20/2025 11:27:39 7 extraction of wisdom tooth completed Xiomara Manzano [facility] 01/22/2024 11:30:21 Imaging Results Imaging Date Name Status LastModified by Organiz ation Details LastModified Time 03/18/2024 US, obstetric, follow-up completed [email or web address] [place] [address], [place], [address], 03/18/2024 13:51:56 03/18/2024 US, obstetric, follow-up completed [email or web address] [address], [place], [address], 03/18/2024 23:15:17 03/30/2024 non-stress test completed [email or web address] [place] [address], [place], [address], 03/30/2024 11:29:09 04/13/2024 US, obstetric, follow-up completed [email or web address] [address], [place], [address], 04/13/2024 12:42:28 04/13/2024 US, obstetric, follow-up completed [address] [facility], [place], [address], 04/14/2024 16:02:44 Procedure Notes None recorded. Medical Equipment None Reported. Allergies No known drug allergies Medications Name Sig Start Date Stop Date Status Note LastModified by Organization Details LastModified Time azithromyci n 250 mg tablet TAKE 2 TABLETS BY MOUTH FOR 1 DAY THEN TAKE 1 TABLET BY MOUTH DAILY FOR 4 DAYS 01/20 completed Not Available Not Available Not Available ondansetron HCl 4 mg tablet TAKE 1 TABLET BY MOUTH EVERY 4 TO 6 HOURS NEEDED FOR NAUSEA 01/22 completed Not Available Not Available Not Available clonazepam 0.5 mg tablet TAKE 1 TABLET BY MOUTH DAILY NEEDED FOR ANXIETY active Not Available Not Available No t Available sertraline 100 mg tablet TAKE 1.5 TABLET BY MOUTH ONCE DAILY FOR 90 DAYS active Not Available Not Available No t Available penicillin V potassium 500 mg tablet TAKE 1 TABLET BY MOUTH EVERY 12 HOURS FOR 10 DAYS 08/14 completed Not Available Not Available Not Available buspirone 10 mg tablet TAKE 1 TABLET BY MOUTH TWICE DAILY active Not Available Not Available No t Available promethazin e 25 mg tablet active Not Available Not Available Not Available bupropion HCl 75 mg tablet TAKE 1 TABLET BY MOUTH EVERY DAY IN THE MORNING FOR 7 DAYS 04/13 completed Not Available Not Available Not Available omeprazole 20 mg capsule,del ayed release TAKE 1 CAPSULE BY MOUTH TWICE DAILY active Not Available Not Available No t Available ibuprofen 600 mg tablet TAKE 1 TABLET BY MOUTH EVERY 6 HOURS NEEDED FOR CRAMPING 05/25 completed Not Available Not Available Not Available methylpredn isolone 4 mg tablets in a dose pack FOLLOW PACKAGE DIRECTION S 01/20 completed Not Available Not Available Not Available albuterol sulfate HFA 90 mcg/actuati on aerosol inhaler INHALE 1 TO 2 PUFFS BY MOUTH EVERY 4 TO 6 HOURS NEEDED FOR SHORTNESS OF BREATH OR WHEEZING active Not Available Not Available No t Available norethindro ne (contracept oral) 0.35 mg tablet TAKE 1 TABLET BY MOUTH DAILY 05/21 completed Not Available Not Available Not Available cefdinir 300 mg capsule TAKE ONE CAPSULE BY MOUTH EVERY 12 HOURS HOLD IRON WHILE TAKING CEFDINIR 05/21 completed Not Available Not Available Not Available sertraline 50 mg tablet TAKE 1 TABLET BY MOUTH DAILY 01/20 completed Not Available Not Available Not Available metoclopram juan manuel 10 mg tablet TAKE 1 TABLET BY MOUTH FOUR TIMES DAILY 04/13 completed Not Available Not Available Not Available erythromyci n-benzoyl peroxide 3 %-5 % topical gel APPLY TOPICALLY TO ACNE LESIONS TWICE DAILY UNTIL GONE 05/25 completed Not Available Not Available Not Available Reglan 5 mg tablet Take 1 tablet 4 times a day by oral route. 01/20 completed Not Available Not Available Not Available trimethoben zamide 300 mg capsule TAKE 1 CAPSULE BY MOUTH THREE TIMES DAILY 01/22 completed Not Available Not Available Not Available clonazepam 0.25 mg disintegrat ing tablet DISSOLVE 2 TABLETS ON THE TONGUE EVERY DAY NEEDED 10/09 completed Not Available Not Available Not Available cholestyram ine (with sugar) 4 gram powder for susp in a packet DISSOLVE 1 PACKET IN LIQUID AND DRINK TWICE DAILY NEEDED FOR DIARRHEA 05/21 completed Not Available Not Available Not Available bupropion HCl XL 150 mg 24 hr tablet, extended release TAKE 1 TABLET BY MOUTH DAILY IN THE MORNING active Not Available Not Available No t Available Buproban 150 mg tablet,exte nded release 05/21 completed Not Available Not Available Not Available active Not Available Not Avai lable Not Available + DHA 04/13 completed Not Available Not Available Not Available Diclegis 10 mg-10 mg tablet,ghulam yed release Take 2 tablets every day by oral route at bedtime. 01/22 completed Not Available Not Available Not Available with DHA-Folic Acid 05/25 completed Not Available Not Available Not Available Magalys 24 Fe 1 mg-20 mcg (24)/75 mg (4) tablet TAKE 1 TABLET BY MOUTH DAILY 05/21 completed Not Available Not Available Not Available Vitals Date Recorded Body height Body mass index (BMI) Body weight Systolic blood pressure Diastolic blood pressure Provider Name and Address Organization Details Last Updated DateTime 04/13/2024 165.1 cm 43.6 kg/m2 355296.2 0094 g 111 mm[Hg] 76 mm[Hg] Xiomara Manzano [facility] 4 11:51:56 Date Recorded Body height Body mass index (BMI) Body weight Systolic blood pressure Diastolic blood pressure Provider Name and Address Organization Details Last Updated DateTime 04/20/2024 165.1 cm 43.8 kg/m2 854557.7 9331 g 114 mm[Hg] 71 mm[Hg] Xiomara Manzano [facility] 4 17:03:22 Date Recorded Body height Body mass index (BMI) Body weight Systolic blood pressure Diastolic blood pressure Provider Name and Address Organization Details Last Updated DateTime 05/25/2024 165.1 cm 40.1 kg/m2 236807.7 6 g 117 mm[Hg] 78 mm[Hg] Xiomara Manzano [facility] 4 12:20:44 Date Recorded Body height Body mass index (BMI) Body weight Systolic blood pressure Diastolic blood pressure Provider Name and Address Organization Details Last Updated DateTime 01/20/2025 165.1 cm 42.3 kg/m2 515941.4 6 g 102 mm[Hg] 68 mm[Hg] Xiomara Manzano [facility] 5 11:25:56 Social History Question Answer Notes LastModified by Organizat ion Details LastModified Time Tobacco Smoking Status Never Smoker Lesley wisdom [facility] 12/24/2023 14:56:08 What Is Your Level Of Alcohol Consumption? None [email or web address] Information not available 04/13/2024 If You Are , What Was Your Level Of Alcohol Consumption Prior To ? Occasional [email or web address] Information not available 02/19/2024 How Many Years Have You Consumed Alcohol? 3 Information not available 05/21/2023 Are You Blind Or Do You Have Difficulty Seeing? No Information not available 05/21/2023 What Is Your Level Of Caffeine Consumption? Moderate Information not available 05/21/2023 In The 14 Days Before Symptom Onset, Have You Had Close Contact With A Laboratory-confir med COVID-19 While That Case Was Ill? No Information not available 05/21/2023 In The 14 Days Before Symptom Onset, Have You Had Close Contact With A Person Who Is Under Investigation For COVID-19 While That Person Was Ill? No Information not available 05/21/2023 Have You Been To An Area Known To Be High Risk For COVID-19? No Information not available 05/21/2023 Are You Deaf Or Do You Have Serious Difficulty Hearing? No Information not available 05/21/2023 What Type Of Diet Are You Following? REGULAR Information not available 05/21/2023 What Is The Highest Grade Or Level Of School You Have Completed Or The Highest Degree You Have Received? 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 Yes Information not available 05/21/2023 Do You Use Protection During Sex? No Information not available 05/21/2023 Do You Use Your Seat Belt Or Car Seat Routinely? Yes Information not available 05/21/2023 Do You Have Smoke And Carbon Monoxide Detectors In Your Home? Yes Information not available 05/21/2023 How Much Tobacco Do You Smoke? No Information not available 05/21/2023 Do You Feel Stressed (tense, Restless, Nervous, Or Anxious, Or Unable To Sleep At Night)? [id number] [email or web address] Information not available 02/19/2024 Do You Use Any Illicit Or Recreational Drugs? Yes Information not available 05/21/2023 Do You Use Sunscreen Routinely? Yes Information not available 05/21/2023 Have You Used IV Drugs? No Information not available 05/21/2023 Sex: Female Functional Status Question Answer Note LastModified by Organizat ion Details LastModified Time Do you have difficulty walking or climbing stairs? No [email or web address] Information not available 12/24/2023 Are you able to walk? [email or web address] Information not available 05/21/2023 Are you able to care for yourself? Yes Information not available 12/24/2023 Do you have difficulty dressing or bathing? No [email or web address] Information not available 12/24/2023 What is your exercise level? Moderate Information not available 05/21/2023 Mental Status None recorded. Family History Relationship Description Onset Age of this Age Resolved Age Notes LastModified by Organization Details LastModified Time Paternal Grandmother Depressive disorder [email or web address] Not available 03/30 10:34:35 Mother Asthma [email or web address] Not available 03/30/2024 10:34:35 Mother Anxiety disorder [email or web address] Not available 03/30 10:34:35 Mother Depressive disorder [email or web address] Not available 03/30 10:34:35 Maternal Grandmother Asthma [email or web address] Not available 11/2023 10:34:35 Father Anxiety disorder [email or web address] Not available 03/30 10:34:35 Father Depressive disorder [email or web address] Not available 03/30 10:34:35 Medical History Condition Response Allergies (Food, seasonal, environmental ) Y Other Y Drug/Latex Allergies/Reactions N Blood Transfusion N Breast Cancer N Dermatologic Disorders N Lung Disease N Defects or Inherited Disease N Breast Problem N Gestational Diabetes N Hematologic disorders N Anesthesia Complications N History of STI N Deep Vein Thrombosis N Polycystic ovary syndrome N Anxiety Disorder Y Autoimmune disease N Arthritis N Polyps N Infertility N Acid Reflux (GERD) Y History of abnormal pap N Cancer N Varicosities N Stroke N Neurologic/Epilepsy N Endometriosis N High Cholesterol N Fibromyalgia N Headaches N Kidney Disease N Heart Problems N Thyroid Problems N Kidney or Bladder Problems N GI Problems N Eating Disorder N Anemia Y Art (IVF or FET) N Psychiatric Illness Y Ovarian Cancer N Diabetes N Pulmonary (TB, Asthma) N Hepatitis/Liver Disease N No Past Medical History N Eczema N Urinary Tract Infection N Abuse/Domestic Violence N Asthma Y Trauma/Violence N Depression/ depression Y Heart Disease N Pre-Eclampsia N Hypertension N Osteoporosis N Thrombophilias N Gynecological History Statement/Question Response Abnormal Pap N Date of Last Mammogram Flow Moderate Date of LMP 01/15/2024 On BCP's at Conception? N N Was last menstrual period normal Y STIs/STDs N HPV Vaccine Y Duration of Flow (days) 7 Current Control Method None Age at First Child 21 Frequency of Cycle (Q days) 30 Sexually Active? Y Date of DEXA bone scan Age of first menstrual cycle 10 Date of Last Pap Smear 01/20/2025 Sexual Problems? N LMP Definite N Obstetrics History GPAL:G 2 P 1 1 0 2 Type Value Full Term 1 Premature 1 Living 2 Total 2 Past Encounters Encounter ID Performer Location Encounter Start Date Encounter Closed Date Diagnosis/Indication Diagnosis SNOMED-CT Code Diagnosis ICD10 Code Diagnosis Note [id number] DARCY Parham [place] [address] [address] 05/21/2023 15:49:35 05/21/2023 16:41:58 Gynecologic examination 48685205 Z01.419 Take Calcium with Vitamin D 1200mg daily if not receiving in daily diet. It is strongly advised to have an annual flu shot and up can obtain at most pharmacies . If you have not had a TDap shot in the last 10 years you should obtain one as well. Discussed with patient & provided with informatio n regarding Gardisil vaccine to prevent the 4 strains for HPV that cause cervical cancer if under age 26. Encourage safe sexual practices, to use condoms and limit partners if not already in a monogamous relationsh ip. Do monthly self breast exams. Have mammogram yearly or every other year depending on family history. BRCA testing is now available for patients with strong genetic history of female cancer. If interested contact the office. Engage in daily exercise of low impact aerobic exercise 45-60 minutes 4-5 times weekly. Avoid tobacco and illicit drugs as well as using moderation with alcohol intake less than 1-2 8 oz beverages daily. This lifestyle behavior pattern will lead to less health conditions and longer life span. If BMI greater than 25 weight watchers or dietary consult advised. Patient received above instructio ns, and questions have been answered. If you have any questions please call or respond to this email. Patient was made aware of the patient portal and may obtain a paper copy of today's plan if desired. WWEBC - withdrawal . BC declined. Servando [facility] soon, has an 18 month old girl at [facility] hx of abnormal papspap updated todaySTI testing declinedfa chidi hx discussedU TD with PCPRTC in 1 year or sooner if needed [id number] DARCY Parham [place] [address],[place] [address] 07/28/2023 15:44:48 07/28/2023 16:30:11 Pain in pelvis 66090359 R10.2 This patient is a 23 -year-old female with pelvic pain. We have agreed to complete the evaluation with pelvic ultrasound . The patient will return after the pelvic ultrasound to discuss those findings and to develop a treatment plan. A comprehens oral history and physical exam was performed today. We spent over 25 minutes face-to-fa ce. The patient was given precaution s. She will contact clinic if pelvic pain increases in frequency or intensity. Also notify clinic of any new symptoms associated with pelvic pain. She does not appear to have an acute pelvic infection today, but was asked to contact us Immediatel y with nausea, vomiting, fever, chills. UPT (-)gc/ct/t rich testing sentpelvic u/s ordered Time spent in visit is a total of 25 mins with at least 50% of visit consisting of counseling and review of plan of care. Venereal d isease screening 711442320 Z11.3 [id number] April Bojorquez [place] [address] [address] 08/11/2023 09:22:57 08/11/2023 09:48:50 Pain in pelvis 59755717 R10.2 [id number] DARCY Parham [place] [address] [address] 08/14/2023 09:25:52 08/14/2023 14:44:29 Pain in pelvis 35897040 R10.2 we reviewed updated pelvic u/s - wnlrecomme nded pelvic floor therapy, she agrees with this plan and would like referralre sean peralta reviewedf/ u in 2-3 months Time spent in visit is a total of 20 mins with at least 50% of visit consisting of counseling and review of plan of care. Dyspareunia 48616440 N94 .10 [id number] [facility] [address],[place] [address] 09/18/2023 16:09:26 09/20/2023 10:55:27 Threatened miscarriage 76781686 O20.0 Z36.87 Z3A.01 [id number] [facility] [address],[place] [address] 09/22/2023 16:00:07 09/22/2023 16:39:35 Threatened miscarriage 09387177 O20.0 Z3A.01 [id number] [facility] [address],[place] [address] 10/05/2023 16:57:19 10/05/2023 18:16:19 [id number] Navi Jeffrey MD [place] [address],[place] [address] 10/09/2023 09:49:38 10/09/2023 11:24:08 Nausea and vomiting 79737097 R11.2 23-year-ol d female, , severe nausea and vomiting. Has history of hyperemesi s with 40 lb weight loss in a previous . She did not respond to Reglan. To start promethazi ne. We talked about possible changing to Zofran in a week. Can consider Zofran pump or continuous IV fluids if necessary. She understand s that she should go to Labor delivery she is not tolerating p.o. for. Time. P.o. liquids. We spent over 20 minutes face-to-fa ce. More than 50% was counseling [id number] Kathy Ortiz [place] [address],[place] [address] 10/27/2023 14:52:12 10/27/2023 16:18:28 [id number] [facility] [address],[place] [address] 10/30/2023 09:53:56 10/30/2023 10:57:06 screening 376412209 Z36.82 Z3A.12 [id number] Navi Jeffrey MD [place] [address],[place] [address] 11/25/2023 15:24:30 11/25/2023 16:20:47 Routine care 735734438 Z34.92 screening 2437 88506 Z36.89 Nausea and vomiting 1693 2000 R11.2 [id number] [facility] [address],[place] [address] 12/24/2023 14:52:06 12/24/2023 16:19:13 screening for malformation 161223571 Z36.3 O99.210 Z3A.20 [id number] Navi Jeffrey MD [place] [address],[place] [address] 12/24/2023 14:55:49 12/25/2023 08:44:01 Nausea and vomiting 55201730 R11.2 Routine an tenatal care 211272130 Z34.92 [id number] CRAIG NI MD [place] [address],[place] [address] 01/11/2024 13:54:43 01/11/2024 16:32:48 Nausea and vomiting 71204618 R11.2 - total weight gain 8lbs, however has lost 8lbs since 16 weeks- vomiting 1-4x per day, continuous nausea- will increase omeprazole to 2x daily, add diclegis at night, and alternate reglan and promethazi ne q3 hours scheduled- patient to call if nausea does not improve [id number] [facility] [address],[place] [address] 01/22/2024 10:34:51 01/22/2024 11:08:31 Marginal insertion of umbilical cord 93802658 O43.129 O99.210 Z3A.24 [id number] Farrah Whitten [facility] [address],[place] [address] 01/22/2024 10:36:08 01/22/2024 11:42:42 Routine care 700248365 Z34.92 [id number] Farrah Whitten [facility] [address],[place] [address] 02/19/2024 09:11:06 02/19/2024 10:04:36 Routine care [id number] Z34.92 [id number] [facility] [address],[place] [address] 02/19/2024 09:11:43 02/19/2024 09:36:42 Placental condition affecting management of mother [id number] O43.103 Z3A.28 [id number] Farrah Whitten [facility] [address] [place] [address] 03/04/2024 09:56:50 03/04/2024 10:43:32 Routine care [id number] Z34.92 [id number] [facility] [address] [place] [address] 03/18/2024 09:57:46 03/18/2024 10:37:06 Placental condition affecting management of mother [id number] O43.103 Z3A.32 [id number] Farrah Whitten [facility] [address] [place] [address] 03/18/2024 10:25:11 03/18/2024 10:41:41 Routine care [id number] Z34.92 [id number] Farrah Whitten [facility] [address] [place] [address] 03/30/2024 10:02:17 03/30/2024 11:12:08 Routine care [id number] Z34.92 [id number] [facility] [address] [place] [address] 03/30/2024 11:07:40 03/30/2024 11:29:00 dysrhythmia [id number] O36.8399 [id number] April Bojorquez [place] [address],[place] [address] 04/13/2024 10:47:32 04/13/2024 11:24:25 Maternal obesity complicating , childbirth and the puerperium, antepartum [id number] O99.213 O43.123 Z3A.[id number] [facility] [address],[place] [address] 04/13/2024 10:47:51 04/13/2024 12:13:00 Routine care [id number] Z34.92 [id number] Farrah Whitten CNM [place] [address],[place] [address] 04/20/2024 16:35:51 04/20/2024 17:22:24 Routine care [id number] Z34.92 [id number] Xiomara Jose Juan [place] [address],[place] [address] 05/25/2024 12:04:32 05/25/2024 12:40:43 care [id number] Z39.2 f/u wwe in 6 months [id number] [facility] [address],[place] [address] 01/20/2025 10:45:48 01/20/2025 11:53:06 Gynecologic examination [id number] Z01.419 Health Concerns Section Related Observation LastModified by Organization Detai ls LastModified Time None Recorded Concern Status LastModified by Organization Details LastModified Time None Recorded Advance Directives Directive None Recorded Payers Encounter Date Sequence Insurance Name Policy Number Policy Bryan Covered Member ID Bryan Member ID Guarantor Name 04/13/2024 1 R [id number] Rik Torres [id number] Eulalia Torres 04/13/2024 1 [facility] [id number] Rik Torres [id number] Eulalia Torres 04/20/2024 1 R [id number] Rik Torres [id number] Eulalia Torres 05/25/2024 1 [facility] [id number] Rik Torres [id number] Eulalia Torres 01/20/2025 1 [facility] [id number] Rik Torres [id number] Eulalia Torres Notes Date Note Type Note Provider Name and Address Organization Details Recorded Time 05/25/2024 text/html VisitReported bypatient.Quality:N Context:complicatio ns of : none; complications of labor: none; complications: none; feeding choice: breast and bottle; good support from partner/family; resumed menstrual bleeding no Associated Symptoms:no abnormal bleeding; no vaginal discharge; no pelvic pain; no constipation; no fecal incontinence; no dysuria; no urinary incontinence; no problems; normal mood Contraception Plan:declines contraceptionNotes: doing well Xiomara wisdom, [facility] 05/25/2024 19:35:43 01/20/2025 text/html Annual GYNReport ed bypatient.History:n o gynecologic complaints; no change in interval history Menstrual cycle:Normal menses Urinary symptoms:No hematuria; No incontinence Vulva:No genital lesion Vagina:Normal vaginal discharge Breast:No breast pain; No breast lump; No nipple discharge Current Contraception:decli ashu Sexual complaints:No sexual complaints; No pain during intercourse; Normal libido Menopausal Symptoms:No menopausal symptoms; Normal vaginal lubrication Psychological symptoms:No depression; No anxiety; No PMDD Preventive measures:Encourage self breast examination; Encourage regular exercise; Encourage no tobacco use; Encourage regular mammograms starting age 40Notes:doing well baby 9 mo! Farrah Whitten CNM [address], [place], [address], [facility] 01/20/2025 11:49:38 OBGyn Episode Ob Episode Information Episode Created Date Number of Fetuses Patient Bloodtype Patient rh Status Prepregnancy Weight lbs Domestic Partner Domestic Partner Phone Father Name [employer] Status 11/25/20 23 1 A Positive CLOSED Fetus Data First Name Last Name Admitted to NICU Weight (g) Sex Living Outcome Pediatric Complications Fetus ID Race Codes Race Delivery Type 3260.19 25 M true Full Term [id number] Vaginal Delivery Problems Problem Notes Pt offered repeat Type and S creen. Pt declines. Pt states she will complete a records release when she is in the office on 01/22/24. Pt instructed on rhogam and informed if previous blood type is positive and current is negative, we will likely recommend repeat blood draw for confirmation so Rhogam can be administered if indicated. Pt verbalized understanding. Mariluz Aldridge RN Problem Name Start Date End Date Resolution Snomed Code Not e Premature delivery [id number] 3 6 and 6 Depressive disorder 77491014 sertraline and bupropion Marginal insertion of umbilical cord 70268444 serial growth Prophylactic immunotherapy [id number] rhogam at 28wk s - Theodore Calculation Initial Theodore Date Initial Exam Date Initial Exam Provider Initial Ultrasound Date Last Menstrual Period Date Ultra Sound Weeks Gestation 05/10/2024 11/25/2023 10/05/2023 08/04/2023 8 Eighteen To Twenty Week Theodore Update Ultra Sound Date Fundal Height At Umbil Quickening Date Ultra Sound Latest Weeks Gestation Final Theodore Confirmed By Final Theodore Confirmed Date Final Theodore Date Ultra Sound Latest Days Gestation 0 [email or web address] 11/25/2023 05/10/20 24 0 Pre-mell Flowsheet Flowsheet Date 11/25/2023 Gordon Score Blood Edema Fundus Height Fundus Units Glucose Ketones Leukocytes Nitrite Labor Signs Protein Cervic Dilation Cervic Effacement Cervic Station 16 Type Weight in lbs Pre/Post Dialysis Refused Weight 261.99240213447 BP Diastolic BP Location Tested BP Systolic BP Type 75 R arm 118 sitting Fetus Heart Rate Present A 145 Fetus Movement Comments this patient is a 23-year-ol d 2 para 0101 at 16 weeks' gestation. She is a 36 week and 6 day gestation delivery. Technically . She has continued to have some mild nausea. We talked about care in detail. She is given vaccine recommendations. She is vaccinated for COVID. She will begin routine care. Flowsheet Date 12/24/2023 Gordon Score Blood Edema Fundus Height Fundus Units Glucose Ketones Leukocytes Nitrite Labor Signs Protein Cervic Dilation Cervic Effacement Cervic Station Type Weight in lbs Pre/Post Dialysis Refused BP Diastolic BP Location Tested BP Systolic BP Type Fetus Heart Rate Present Fetus Movement Comments Flowsheet Date 12/24/2023 Gordon Score Blood Edema Fundus Height Fundus Units Glucose Ketones Leukocytes Nitrite Labor Signs Protein Cervic Dilation Cervic Effacement Cervic Station 20 Type Weight in lbs Pre/Post Dialysis Refused Weight 259.233876801137 BP Diastolic BP Location Tested BP Systolic BP Type 69 L arm 101 sitting Fetus Heart Rate Present A 143 Fetus Movement Comments No complaints, no problems, routine care Flowsheet Date 01/11/2024 Gordon Score Blood Edema Fundus Height Fundus Units Glucose Ketones Leukocytes Nitrite Labor Signs Protein Cervic Dilation Cervic Effacement Cervic Station Type Weight in lbs Pre/Post Dialysis Refused Weight 253.377702661374 BP Diastolic BP Location Tested BP Systolic BP Type 73 114 Fetus Heart Rate Present Fetus Movement Comments Flowsheet Date 01/22/2024 Gordon Score Blood Edema Fundus Height Fundus Units Glucose Ketones Leukocytes Nitrite Labor Signs Protein Cervic Dilation Cervic Effacement Cervic Station Type Weight in lbs Pre/Post Dialysis Refused BP Diastolic BP Location Tested BP Systolic BP Type Fetus Heart Rate Present Fetus Movement Comments Flowsheet Date 01/22/2024 Gordon Score Blood Edema Fundus Height Fundus Units Glucose Ketones Leukocytes Nitrite Labor Signs Protein Cervic Dilation Cervic Effacement Cervic Station neg none none trace Type Weight in lbs Pre/Post Dialysis Refused Weight 256.015053057904 BP Diastolic BP Location Tested BP Systolic BP Type 74 119 Fetus Heart Rate Present Fetus Movement A Yes Comments doing well, mood up and down , continue meds, efw 31%, plan glucose next visit, order given f.u 4 weeks Flowsheet Date 02/19/2024 Gordon Score Blood Edema Fundus Height Fundus Units Glucose Ketones Leukocytes Nitrite Labor Signs Protein Cervic Dilation Cervic Effacement Cervic Station Type Weight in lbs Pre/Post Dialysis Refused BP Diastolic BP Location Tested BP Systolic BP Type Fetus Heart Rate Present Fetus Movement Comments Flowsheet Date 02/19/2024 Gordon Score Blood Edema Fundus Height Fundus Units Glucose Ketones Leukocytes Nitrite Labor Signs Protein Cervic Dilation Cervic Effacement Cervic Station neg none none trace Type Weight in lbs Pre/Post Dialysis Refused Weight 257.732377634398 BP Diastolic BP Location Tested BP Systolic BP Type 56 104 Fetus Heart Rate Present Fetus Movement A Yes Comments patient is having some dizzy , nausea and vomiting. check on records for blood type efw 58%, went natural last delivery, on back, would like delayed cord clamping and skin to skin, f/u 2 weeks Flowsheet Date 03/04/2024 Gordon Score Blood Edema Fundus Height Fundus Units Glucose Ketones Leukocytes Nitrite Labor Signs Protein Cervic Dilation Cervic Effacement Cervic Station neg none 32 none trace Type Weight in lbs Pre/Post Dialysis Refused Weight 260.519005539167 BP Diastolic BP Location Tested BP Systolic BP Type 67 105 Fetus Heart Rate Present Fetus Movement A Yes Comments Patient is having some cramp ing, nausea and vomiting. doing well, +FM, precautions and education f/u 2 weeks Flowsheet Date 03/18/2024 Gordon Score Blood Edema Fundus Height Fundus Units Glucose Ketones Leukocytes Nitrite Labor Signs Protein Cervic Dilation Cervic Effacement Cervic Station Type Weight in lbs Pre/Post Dialysis Refused BP Diastolic BP Location Tested BP Systolic BP Type Fetus Heart Rate Present Fetus Movement Comments Flowsheet Date 03/18/2024 Gordon Score Blood Edema Fundus Height Fundus Units Glucose Ketones Leukocytes Nitrite Labor Signs Protein Cervic Dilation Cervic Effacement Cervic Station neg none none trace Type Weight in lbs Pre/Post Dialysis Refused Weight 258.909360148007 BP Diastolic BP Location Tested BP Systolic BP Type 71 109 Fetus Heart Rate Present Fetus Movement A Yes Comments Patient is having some cramp ing, discharge, nausea and vomiting. reviewed us will await any additional f/u after dr jeffrey reads it otherwise f/u 4 weeks efw 58% +FM, ok for tdap, call for preadmission Flowsheet Date 03/30/2024 Gordon Score Blood Edema Fundus Height Fundus Units Glucose Ketones Leukocytes Nitrite Labor Signs Protein Cervic Dilation Cervic Effacement Cervic Station neg none none trace Type Weight in lbs Pre/Post Dialysis Refused Weight 260.109622307662 BP Diastolic BP Location Tested BP Systolic BP Type 67 108 Fetus Heart Rate Present Fetus Movement A Yes Comments Patient states that having s ome back pain, nausea and vomiting. plan NST ? variable on doppler, doing well, growth next visit also plan GBS, education and precautions Flowsheet Date 03/30/2024 Gordon Score Blood Edema Fundus Height Fundus Units Glucose Ketones Leukocytes Nitrite Labor Signs Protein Cervic Dilation Cervic Effacement Cervic Station Type Weight in lbs Pre/Post Dialysis Refused BP Diastolic BP Location Tested BP Systolic BP Type Fetus Heart Rate Present Fetus Movement Comments Flowsheet Date 04/13/2024 Gordon Score Blood Edema Fundus Height Fundus Units Glucose Ketones Leukocytes Nitrite Labor Signs Protein Cervic Dilation Cervic Effacement Cervic Station Type Weight in lbs Pre/Post Dialysis Refused BP Diastolic BP Location Tested BP Systolic BP Type Fetus Heart Rate Present Fetus Movement Comments Flowsheet Date 04/13/2024 Gordon Score Blood Edema Fundus Height Fundus Units Glucose Ketones Leukocytes Nitrite Labor Signs Protein Cervic Dilation Cervic Effacement Cervic Station neg none none trace Type Weight in lbs Pre/Post Dialysis Refused Weight 262.916669756935 BP Diastolic BP Location Tested BP Systolic BP Type 76 111 Fetus Heart Rate Present Fetus Movement A Yes Comments Patient is having some pain, back pain, cramping, nausea and vomiting. efw 67%, vertex, +FM, GBS today, precautions and education Flowsheet Date 04/20/2024 Gordon Score Blood Edema Fundus Height Fundus Units Glucose Ketones Leukocytes Nitrite Labor Signs Protein Cervic Dilation Cervic Effacement Cervic Station neg none none neg 4cm 60% -3 Type Weight in lbs Pre/Post Dialysis Refused Weight 263.808821683923 BP Diastolic BP Location Tested BP Systolic BP Type 71 114 Fetus Heart Rate Present Fetus Movement A Yes Comments Patient is having some pain, contractions, nausea and vomiting. vertex , labor precautions, +FM, f/u one week in undelivered discussed optional membrane sweep at 38 Menstrual History Last Menstrual Date Menses Monthly On Bcp Conception Prior Menses Frequency Hcg Plus Date Menarche Onset Age 0908/04/2023 Genetic Screening And Infection History Question Response Note Mental Retardation/Autism false Patient's Age Will Be 35 Years Or Older At Estim ated Date of Delivery false Thalassemia (Nepali, Lao, Mediterranean, Or Background): MCV < 80 false Neural Tube Defect (Meningomyelocele, Spina Bifi da, Or Anencephaly) false Congenital Heart Defect false Down Syndrome false Herminio-Sachs (eg, Advent, Cajun, Turkmen-Republic) f alse Sally Disease false Sickle Cell Disease Or Trait () false Hemophilia Or Other Blood Disorders false Muscular Dystrophy false Cystic Fibrosis false Cloud's Chorea false Intellectual Disability/Autism false If Yes, Was Person Tested For Fragile X? false Other Inherited Genetic Or Chromosomal Disorder false Maternal Metabolic Disorder (eg, Type 1 Diabetes , PKU) false Patient Or Baby's Father Had A Child With Defects Not Listed Above false Recurrent Loss, Or A Stillbirth false Medications (including Suppl ements, Vitamins, Herbs, OTC Drugs), Illicit/Recreational Drugs, Alcohol false If Yes, Agent(s) And Strength/Dosage false Any Other Genetic History false Live With Someone With TB Or Exposed To TB false Patient Or Partner Has History Of Genital Herpes false Rash Or Viral Illness Since Last Menstrual Perio d false History Of STD, Gonorrhea, Chlamydia, HPV, Syphi lis false Other Infection History false History of HIV false History of Hepatitis false Prior GBS-infected child false Hemoglobinopathy Or Carrier false Other Structural Defect false Recent Travel History Outside of Country false Delivery Information Delivery Date Delivery Type Labor Anesthesia Weeks Gestation Incision Type Labor Labor Length Hrs Delivered By Post Complications Tubal Sterilization Discharge Date Comments 4 Augmen petra None 37.4 false Farrah Whitten CNM [facility]; Depressiv e disorder, Marginal insertion of umbilical cord,Simon ature delivery, Prophylac tic immunothe rapy Discharge Information Feeding Method Contraceptive Method Maternal HG B and HCT Levels Ob Episode Information Episode Created Date Number of Fetuses Patient Bloodtype Patient rh Status Prepregnancy Weight lbs Domestic Partner Domestic Partner Phone Father Name [employer]er Status 07/28/20 23 1 CLOSED Fetus Data First Name Last Name Admitted to NICU Weight (g) Sex Living Outcome Pediatric Complications Fetus ID Race Codes Race Delivery Type 3033.16 9704 F Prematur [place] [address]50 Vaginal Delivery Theodore Calculation Initial Theodore Date Initial Exam Date Initial Exam Provider Initial Ultrasound Date Last Menstrual Period Date Ultra Sound Weeks Gestation 0 Eighteen To Twenty Week Theodore Update Ultra Sound Date Fundal Height At Umbil Quickening Date Ultra Sound Latest Weeks Gestation Final Theodore Confirmed By Final Theodore Confirmed Date Final Theodore Date Ultra Sound Latest Days Gestation 0 0 Menstrual History Last Menstrual Date Menses Monthly On Bcp Conception Prior Menses Frequency Hcg Plus Date Menarche Onset Age Delivery Information Delivery Date Delivery Type Labor Anesthesia Weeks Gestation Incision Type Labor Labor Length Hrs Delivered By Post Complications Tubal Sterilization Discharge Date Comments 2 36.6 Merary Discharge Information Feeding Method Contraceptive Method Maternal HG B and HCT Levels
--- OUTSIDE RECORDS SUMMARY | 2025-02-11 09:06 | XMS_ITS ---
Author Organization [facility] Address [address] [place] [address] Care Team Providers Care Java Web Architect Name Role Phone Shanika Knight APRN Primary Care Provider Zara Rothman Unavailable [phone] REASON FOR VISIT question Social History Sex Assigned At : Social History Observation Description Sex Assigned At Female Encounters Encounter Location Date Provider Diagnosis [facility] [address] [place] [address] 01/31/2025 Zara Horton Plan Of Treatment Next Appt Details Provider Name:Zara Horton, 04/14/2025 08:15:00 AM, [address], [address], [place], [address], Progress Notes * SHERIDANLUKASZ ChuaABHIJITOB:2000 (24 yo F)Acc No.[id number]:01/31/2025 Patient: ARINA PATTERSON :2000 A ge:24 Y S ex:Female Address:[address], [place], [address] * true * Date: Generated for Printi ng/Faxing/eTransmitting on: 0 02/11/2025 09:05 AM CDT
[2025-02-13 08:54] LABS: Thyroid Peroxidase Antibodies 120 IU/mL (<9)
== END 2025-02-11 09:03 | disposition home or self-care (01) ==
LOC: ANHLAB 09:03
PROVIDERS: PCP Nurse Practitioner Adult Health; Visit Provider Nurse Practitioner Adult Health
DX: R79.89 Other specified abnormal findings of blood chemistry (principal)
CPT/HCPCS: 36415; 86376

== ENCOUNTER 2025-03-29 08:24 | Outpatient (CLI) | payer OTHER, SELFPAY ==
--- OUTSIDE RECORDS SUMMARY | 2025-03-29 08:35 | XMS_ITS | Data Portability ---
Author Organization [facility] [place] Address [address] [place] [address] Care Team Providers Care Sales Floor Associate Name Role Phone CARLO CARO Primary Care Provider Assessment Encounter Date Assessment Date Assessment LastModified [...] rhiannon, follow -up 024 04/13/20 24 [email or web address] [address], [address], [place], [address], 19:07:50 Medication Orders None record ed. Patient [...] t Abnor mal: No Resul ting Lab: [facility] [address] [facility] [address] Tel: CULTU RE ----- ----- ----- --- No Group B strep isola petra at 2 days (jr ctive broth enhan cemen t) Not Available 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 Not Available [facility] (Lab) [address], [place], [address], 01/25/2025 19:10:59 03/18/20 24 03/18/2024 US, obste tric, follo w-up No observ ation record ed. [email or web address] Henry [address], [place], [address], 03/18/2024 13:51:56 03/18/20 24 03/18/2024 US, obste tric, follo w-up No observ ation record ed. [email or web address] [address], [place], [address], 03/18/2024 23:15:17 03/30/20 24 03/30/2024 non-s tress test No observ ation record ed. [email or web address] Henry [address], [place], [address], 03/30/2024 11:29:09 04/13/20 24 04/13/2024 US, obste tric, follo w-up No observ ation record ed. [email or web address] Henry [address], [place], [address], 04/13/2024 12:42:28 04/13/20 24 04/13/2024 US, obste tric, follo w-up No observ ation record ed. [email or web address] [address], [place], [address], 04/14/2024 16:02:44 Result Notes None recorded. Problems Name Problem SNOMED Code Status Onset Date Resolution Date Notes Provider Name and Address Organization Details Recorded Time Pregnanc y 32466915 Com[facility] 202205[facility]02[facility] 13:45:14 Prematur e delivery 789174207 Completed 36 and 6 [facility] 4 13:45:08 Depressi ve disorder 19039102 Completed sertrali ne and bupropio n [facility] 4 13:45:08 Marginal insertio n of umbilica l cord 14983869 Completed serial growth [facility] 4 13:45:08 Prophyla ctic immunoth erapy Completed rhogam at 28wks - [facility] 4 13:45:08 Mixed anxiety and depressi ve disorder 020699398 Active 2023 Xiomara Manzano [facility] 4 09:42:58 Problem Notes None recorded. Procedures Surgical History Date Name Laterality Status Provider Name and Address Organization Details Recorded Time 5 Date of Last Pap Smear completed Xiomara Manzano [facility] 01/20/2025 11:27:39 7 extraction of wisdom tooth completed Xiomara Manzano [facility] 01/22/2024 11:30:21 Imaging Results Imaging Date Name Status LastModified by Organiz ation Details LastModified Time 03/18/2024 US, obstetric, follow-up completed [email or web address] Henry [address], [place], [address], 03/18/2024 13:51:56 03/18/2024 US, obstetric, follow-up completed [email or web address] [address], [place], [address], 03/18/2024 23:15:17 03/30/2024 non-stress test completed [email or web address] Henry [address], [place], [address], 03/30/2024 11:29:09 04/13/2024 US, obstetric, follow-up completed [email or web address] Henry [address], [place], [address], 04/13/2024 12:42:28 04/13/2024 US, obstetric, follow-up completed [address] [facility], [place], [address], 04/14/2024 16:02:44 Procedure Notes None recorded. Medical [...] Updated DateTime 04/13/2024 165.1 cm 43.6 kg/m2 186579.2 0094 g 111 mm[Hg] 76 mm[Hg] Xiomara Manzano [facility] 4 11:51:56 Date Recorded Body height Body mass index (BMI) Body weight Systolic blood pressure Diastolic blood pressure Provider Name and Address Organization Details Last Updated DateTime 04/20/2024 165.1 cm 43.8 kg/m2 616466.7 9331 g 114 mm[Hg] 71 mm[Hg] Xiomara Manzano [facility] 4 17:03:22 Date Recorded Body height Body mass index (BMI) Body weight Systolic blood pressure Diastolic blood pressure Provider Name and Address Organization Details Last Updated DateTime 05/25/2024 165.1 cm 40.1 kg/m2 914391.7 6 g 117 mm[Hg] 78 mm[Hg] Xiomara Manzano [facility] 4 12:20:44 Date Recorded Body height Body mass index (BMI) Body weight Systolic blood pressure Diastolic blood pressure Provider Name and Address Organization Details Last Updated DateTime 01/20/2025 165.1 cm 42.3 kg/m2 640769.4 6 g 102 mm[Hg] 68 mm[Hg] Xiomara Manzano [facility] 5 11:25:56 Social History Question Answer Notes LastModified by Organizat ion Details LastModified Time Tobacco Smoking Status Never Smoker Lesley wisdom [facility] 12/24/2023 14:56:08 What Is Your Level Of Alcohol Consumption? None [email or web address] Information not available 04/13/2024 If You Are , What Was Your Level Of Alcohol Consumption Prior To ? Occasional [email or web address] Information not available 02/19/2024 How Many Years [...] Or The Highest Degree You Have Received? 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 [id number] [email or web address] Information not available 02/19/2024 Do You Use Any Illicit Or Recreational Drugs? Yes Information not available 05/21/2023 Do You Use Sunscreen Routinely? Yes Information not available 05/21/2023 Have You Used IV Drugs? No Information not available 05/21/2023 Sex: Female Functional Status Question Answer Note LastModified by Organizat ion Details LastModified Time Do you have difficulty walking or climbing stairs? No Information not available 12/24/2023 Are you able to walk? [email or web address] Information not available 05/21/2023 Are you able to care for yourself? Yes [email or web address] Information not available 12/24/2023 Do you have difficulty dressing or bathing? No [email or web address] Information not available 12/24/2023 What is your exercise level? Moderate Information not available 05/21/2023 Mental Status None recorded. Family History Relationship Description Onset Age of this Age Resolved Age Notes LastModified by Organization Details LastModified Time Paternal Grandmother Depressive disorder [email or web address] Not available 03/30 10:34:35 Mother Asthma [email or web address] Not available 03/30/2024 10:34:35 Mother Anxiety disorder [email or web address] Not available 03/30 10:34:35 Mother Depressive disorder [email or web address] Not available 03/30 10:34:35 Maternal Grandmother Asthma [email or web address] Not available 11/2023 10:34:35 Father Anxiety disorder [email or web address] Not available 03/30 10:34:35 Father Depressive disorder Not available 03/30 10:34:35 Medical History Condition Response Other Y Blood Transfusion N Dermatologic Disorders N Gestational Diabetes N Anxiety Disorder Y Autoimmune disease N Arthritis N Polyps N Infertility N Acid Reflux (GERD) Y Cancer N Varicosities N Stroke N Neurologic/Epilepsy N Fibromyalgia N Headaches N Kidney Disease N Heart Problems N Kidney or Bladder Problems N Eating Disorder N Art (IVF or FET) N Hepatitis/Liver Disease N No Past Medical History N Urinary Tract Infection N Asthma Y Trauma/Violence N Thrombophilias N Allergies (Food, seasonal, environmental ) Y Breast Cancer N Drug/Latex Allergies/Reactions N Lung Disease N Defects or Inherited Disease N Breast Problem N Hematologic disorders N Anesthesia Complications N History of STI N Deep Vein Thrombosis N Polycystic ovary syndrome N History of abnormal pap N Endometriosis N High Cholesterol N Thyroid Problems N GI Problems N Anemia Y Psychiatric Illness Y Ovarian Cancer N Diabetes N Pulmonary (TB, Asthma) N Eczema N Abuse/Domestic Violence N Depression/ depression Y Heart Disease N Pre-Eclampsia N Hypertension N Osteoporosis N Gynecological History Statement/Question Response Abnormal Pap [...] SNOMED-CT Code Diagnosis ICD10 Code Diagnosis Note [id number] DARCY Parham [address] [address] 05/21/2023 15:49:35 05/21/2023 16:41:58 Gynecologic examination 47618432 Z01.419 Take Calcium with Vitamin D 1200mg [...] in 1 year or sooner if needed [id number] DARCY Parham Henry [address],[facility] [place] [address] 07/28/2023 15:44:48 07/28/2023 16:30:11 Pain in pelvis 78495710 R10.2 This patient is a 23 -year-old [...] plan of care. Venereal d isease screening 824719453 Z11.3 [id number] April Bojorquez Henry [address] [address] 08/11/2023 09:22:57 08/11/2023 09:48:50 Pain in pelvis 52196376 R10.2 [id number] DARCY Parham [address] [address] 08/14/2023 09:25:52 08/14/2023 14:44:29 Pain in pelvis 62275042 R10.2 we reviewed updated pelvic u/s - [email or web address] nded pelvic floor therapy, she agrees with this plan and would like referralre sean peralta reviewedf/ u in 2-3 months Time spent in visit is a total of 20 mins with at least 50% of visit consisting of counseling and review of plan of care. Dyspareunia 05771062 N94 .10 [id number] [facility] [address],[place] [address] 09/18/2023 16:09:26 09/20/2023 10:55:27 Threatened miscarriage 84406881 O20.0 Z36.87 Z3A.01 [id number] [facility] [address],[place] [address] 09/22/2023 16:00:07 09/22/2023 16:39:35 Threatened miscarriage 59756394 O20.0 Z3A.01 [id number] [facility] [address],[place] [address] 10/05/2023 16:57:19 10/05/2023 18:16:19 [id number] Navi Jeffrey MD Henry [address],[place] [address] 10/09/2023 09:49:38 10/09/2023 11:24:08 Nausea and vomiting 46079801 R11.2 23-year-ol d female, , severe nausea [...] face-to-fa ce. More than 50% was counseling [id number] Kathy Ortiz [address],[place] [address] 10/27/2023 14:52:12 10/27/2023 16:18:28 [id number] [facility] [address],[place] [address] 10/30/2023 09:53:56 10/30/2023 10:57:06 screening 365409795 Z36.82 Z3A.12 [id number] Navi Jeffrey MD Henry [address],[place] [address] 11/25/2023 15:24:30 11/25/2023 16:20:47 Routine care 541373263 Z34.92 screening 2437 21080 Z36.89 Nausea and vomiting 1693 2000 R11.2 [id number] [facility] [address],[place] [address] 12/24/2023 14:52:06 12/24/2023 16:19:13 screening for malformation 405573370 Z36.3 O99.210 Z3A.20 [id number] Navi Jeffrey MD Henry [address],[place] [address] 12/24/2023 14:55:49 12/25/2023 08:44:01 Nausea and vomiting 02763520 R11.2 Routine an tenatal care 176921019 Z34.92 [id number] CRAIG NI MD Henry [address],[place] [address] 01/11/2024 13:54:43 01/11/2024 16:32:48 Nausea and vomiting 75002315 R11.2 - total weight gain 8lbs, however has lost 8lbs since 16 weeks- vomiting 1-4x per day, continuous nausea- will increase omeprazole to 2x daily, add diclegis at night, and alternate reglan and promethazi ne q3 hours scheduled- patient to call if nausea does not improve [id number] [facility] [address],[place] [address] 01/22/2024 10:34:51 01/22/2024 11:08:31 Marginal insertion of umbilical cord 22602368 O43.129 O99.210 Z3A.24 [id number] Farrah Whitten [facility] [address],[place] [address] 01/22/2024 10:36:08 01/22/2024 11:42:42 Routine care 165980012 Z34.92 [id number] Farrah Whitten [facility] [address],[place] [address] 02/19/2024 09:11:06 02/19/2024 10:04:36 Routine care 909995040 Z34.[id number] [facility] [address],[place] [address] 02/19/2024 09:11:43 02/19/2024 09:36:42 Placental condition affecting management of mother 386150845 O43.103 Z3A.28 [id number] Farrah Whitten [facility] [address] [place] [address] 03/04/2024 09:56:50 03/04/2024 10:43:32 Routine care 738990336 Z34.[id number] [facility] [address] [place] [address] 03/18/2024 09:57:46 03/18/2024 10:37:06 Placental condition affecting management of mother 621296551 O43.103 Z3A.32 [id number] Farrah Whitten [facility] [address] [place] [address] 03/18/2024 10:25:11 03/18/2024 10:41:41 Routine care 017378507 Z34.92 [id number] Farrah Whitten [facility] [address] [place] [address] 03/30/2024 10:02:17 03/30/2024 11:12:08 Routine care 415550719 Z34.92 [id number] [facility] [address] [place] [address] 03/30/2024 11:07:40 03/30/2024 11:29:00 dysrhythmia 197251215 O36.8399 [id number] April Bojorquez Henry [address],[place] [address] 04/13/2024 10:47:32 04/13/2024 11:24:25 Maternal obesity complicating , childbirth and the puerperium, antepartum 2507498125 07 O99.213 O43.123 Z3A.36 [id number] [facility] [address],[place] [address] 04/13/2024 10:47:51 04/13/2024 12:13:00 Routine care 940865878 Z34.92 [id number] Farrah Whitten CNM [facility] [address],[place] [address] 04/20/2024 16:35:51 04/20/2024 17:22:24 Routine care 223167963 Z34.92 [id number] Xiomara Jose Juan [facility] [address],[place] [address] 05/25/2024 12:04:32 05/25/2024 12:40:43 care 728830029 Z39.2 f/u wwe in 6 months [id number] [facility] [address],[place] [address] 01/20/2025 10:45:48 01/20/2025 11:53:06 Gynecologic examination 09215752 Z01.419 Health Concerns Section Related Observation LastModified by Organization Detai ls LastModified Time None Recorded Concern Status LastModified by Organization Details LastModified Time None Recorded Advance Directives Directive None Recorded Payers Encounter Date Sequence Insurance Name Policy Number Policy Bryan Covered Member ID Bryan Member ID Guarantor Name 04/13/2024 1 [id number] Rik Torres [id number] Eulalia Torres 04/13/2024 1 [facility] [id number] Rik Torres [id number] Eulalia Torres 04/20/2024 1 [id number] Rik Torres [id number] Eulalia Torres 05/25/2024 1 [facility] [id number] Rik Torres [id number] Eulalia Torres 01/20/2025 1 [facility] [id number] Rik Torres [id number] Eulalia Torres Notes Date Note Type Note [...] Contraception Plan:declines contraceptionNotes: doing well Xiomara wisdom, [facility] 05/25/2024 19:35:43 01/20/2025 text/html Annual GYNReport [...] mo! Farrah Whitten CNM [address], [place], [address], [facility] 01/20/2025 11:49:38 OBGyn Episode Ob Episode Information Episode Created Date Number of Fetuses Patient Bloodtype Patient rh Status Prepregnancy Weight lbs Domestic Partner Domestic Partner Phone Father Name Environmental Health Technologist Status 11/25/20 23 1 A Positive CLOSED Fetus Data First Name Last Name Admitted to NICU Weight (g) Sex Living Outcome Pediatric Complications Fetus ID Race Codes Race Delivery Type 3260.19 25 M true Full Term [id number] Vaginal Delivery Problems Problem Notes Pt offered [...] Resolution Snomed Code Not e Premature delivery 604825593 3 6 and 6 Depressive disorder 25122346 sertraline and bupropion Marginal insertion of umbilical cord 96003300 serial growth Prophylactic immunotherapy 539686134 rhogam at 28wk s - Theodore Calculation [...] Weight in lbs Pre/Post Dialysis Refused Weight 261.70282205363 BP Diastolic BP Location Tested BP Systolic [...] Weight in lbs Pre/Post Dialysis Refused Weight 259.525448895324 BP Diastolic BP Location Tested BP Systolic BP Type 69 L arm 101 sitting Fetus Heart Rate Present A 143 Fetus Movement Comments No complaints, no problems, routine care Flowsheet Date 01/11/2024 Gordon Score Blood Edema Fundus Height Fundus Units Glucose Ketones Leukocytes Nitrite Labor Signs Protein Cervic Dilation Cervic Effacement Cervic Station Type Weight in lbs Pre/Post Dialysis Refused Weight 253.619376333529 BP Diastolic BP Location Tested BP Systolic [...] Weight in lbs Pre/Post Dialysis Refused Weight 256.178160308583 BP Diastolic BP Location Tested BP Systolic [...] Weight in lbs Pre/Post Dialysis Refused Weight 257.015159967774 BP Diastolic BP Location Tested BP Systolic [...] Weight in lbs Pre/Post Dialysis Refused Weight 260.592806501423 BP Diastolic BP Location Tested BP Systolic [...] Weight in lbs Pre/Post Dialysis Refused Weight 258.116972495182 BP Diastolic BP Location Tested BP Systolic [...] Weight in lbs Pre/Post Dialysis Refused Weight 260.847650953937 BP Diastolic BP Location Tested BP Systolic [...] Weight in lbs Pre/Post Dialysis Refused Weight 262.956179799621 BP Diastolic BP Location Tested BP Systolic [...] Weight in lbs Pre/Post Dialysis Refused Weight 263.390614841281 BP Diastolic BP Location Tested BP Systolic [...] Estim ated Date of Delivery false Thalassemia (Wolof, Portuguese, Mediterranean, Or Background): MCV < 80 false Neural Tube Defect (Meningomyelocele, Spina Bifi da, Or Anencephaly) false Congenital Heart Defect false Down Syndrome false Herminio-Sachs (eg, Taoist, Cajun, Greek-Gallia) f alse Sally Disease false Sickle Cell Disease Or Trait () false Hemophilia Or Other Blood Disorders false Muscular Dystrophy false Cystic Fibrosis false Vermillion's Chorea false Intellectual Disability/Autism false If Yes, [...] Domestic Partner Domestic Partner Phone Father Name Environmental Health Technologist Status 07/28/20 23 1 CLOSED Fetus Data First Name Last Name Admitted to NICU Weight (g) Sex Living Outcome Pediatric Complications Fetus ID Race Codes Race Delivery Type 3033.16 9704 F Prematur e 99687 Vaginal Delivery Theodore Calculation Initial Theodore Date [...]
--- OUTSIDE RECORDS SUMMARY | 2025-03-29 08:35 | XMS_ITS | Patient Health Record ---
Author Organization [facility] [employer] [facility] Address [address] [place] [address] Care Team Providers Care Health Underwriter Name Role Phone Shanika Knight APRN Primary Care Provider UnaZara Arana Unavailable [phone] Phillip Thena Unavailable [phone] Migration, Provider Unavailable Unavailable Allergies No Known Allergies Results Component Value Reference Range Notes UDT Reviewed date:01/20/2025 09:09:15 AM Interpretation: Performing Lab: Notes/Report: THC POS 0 - 50 ng/ml Cocaine NEG 0 - 300 ng/ml Amphetamine NEG 0 - 1000 ng/ml Buprenorphine (BUP) NEG 0 - 10 ng/ml Secobarbital (Bar) NEG 0 - 300 ng/ml Oxazepam (BZO) POS 0 - 300 ng/ml 5-ijstfettew-2,3-ypwmrzcw-0,3-diphenylpyrrolidine (MIS P) NEG 0 - 300 ng/ml Methamphetamine (MET) NEG 0 - 1000 ng/ml Methylenedioxymethamphetamine (MDMA) NEG 0 - 500 ng/ml Morphine (MOP 300/[id number]) NEG 0 - 300 ng/ml Methadone (MTD) NEG 0 - 300 ng/ml Phencyclidine (PCP) NEG 0 - 25 ng/ml Nortriptyline (TCA) NEG 0 - 1000 ng/ml Oxycodone NEG 0 - 300 ng/ml x NEG 0 - 300 ng/ml Reason For Referral No Information Medications Medication SIG (Take, Route, Frequency, Duration) Notes Start Date End Date Status buPROPion HCl ER (XL) 150 MG 1 tablet in the morning Orally Once a day for 90 days Active *Pick strength-form from [employer] for e[employer]* 04/12/2024 Not-Taking Sertraline HCl 100 MG 1.5 tablet Oral Once a day for 90 days Active clonazePAM 0.5 MG 1 tablet Orally Once a day for 30 days As needed for anxiety 01/20/2025 Active busPIRone HCl 10 MG 1 tablet Orally Twice a day Active Omeprazole 20 MG Oral 04/12/2024 Ac tive Immunizations Vaccine Route Administration Date Status Comme nts DTaP Unknown 2000 Administered DTaP Unknown 2000 Administered DTaP Unknown 2000 Administered DTaP Unknown 08/31/2001 Administered DTaP Unknown 09/15/2005 Administered Hep A, ped/adol, 2 dose Unknown 06/17/2012 Administered Hep B, adolescent or pediatr ic (11-19), 3 dose schedule Unknown 2000 Administered Hep B, adolescent or pediatr ic (11-19), 3 dose schedule Unknown 2000 Administered Hep B, adolescent or pediatr ic (11-19), 3 dose schedule Unknown 2000 Administered Hib (PRP-OMP), 3 dose schedule Unknown 2000 Admin istered Hib (PRP-OMP), 3 dose schedule Unknown 2000 Admin istered Hib (PRP-OMP), 3 dose schedule Unknown 2000 Admin istered Hib (PRP-OMP), 3 dose schedule Unknown 08/31/2001 Admin istered HPV (human papillomavirus), quadrivalent, 3 dose schedule Unknown 06/17/2012 Administered HPV (human papillomavirus), quadrivalent, 3 dose schedule Unknown 08/19/2012 Administered Influenza virus vaccine, quadrivalent (IIV4), split virus, 0.25 mL dosage Unknown 08/19/2012 Administered IPV Unknown 2000 Administered IPV Unknown 2000 Administered IPV Unknown 08/31/2001 Administered IPV Unknown 09/15/2005 Administered Meningococcal MCV4P Unknown 06/17/2012 Administered MMR Unknown 05/31/2001 Administered MMR Unknown 09/13/2005 Administered Pfizer Biontech Covid-19 Vac cine 2nd dose Unknown 08/26/2021 Administered Pfizer [employer]iontech Covid-19 Vac cine 2nd dose Unknown 09/16/2021 Administered Tdap Unknown 06/17/2012 Administered Varicella Unknown 03/02/2001 Administered Varicella Unknown 08/08/2008 Administered Social History Tobacco Use: Social History Observation [...] the p ast year? No Interpretation Positive Problems Problem Type SNOMED Code ICD Code Onset Dates Problem Status W/U Status Risk Notes Problem Mild recurrent major depression (58160908) Major depressive disorder, recurrent, mild (F33.0) Active confirmed Problem Generalized anxiety disorder (08717420) Generalized anxiety disorder (F41.1) Active confirmed Vital Signs Heart Rate 78 /min 01/20/2025 Height-cm 165.10 cm 01/20/2025 Blood pressure diastolic 78 mm Hg 01/20/2025 Weight-kg 115.67 kg 01/20/2025 Height 65.00 in 01/20/2025 Blood pressure systolic 121 mm Hg 01/20/2025 Weight 255 lbs 01/20/2025 BMI 42.43 kg/m2 01/20/2025 Encounters Encounter Location Date Provider Diagnosis [facility] [employer] [facility] [address] [facility] [address] [place] [address] 04/12/2024 Thena Phillip Major depressive disorder, recurrent, mild F33.0 and Generalized anxiety disorder F41.1 [facility] [employer] [facility] [address] [facility] [address] [place] [address] 05/23/2024 Thena Phillip Generalized anxiety disorder F41.1 and Recurrent major depressive disorder, remission status unspecified F33.9 [facility] [employer] [facility] [address] [place] [address] 07/15/2024 Zara Clifford Generalized anxiety disorder F41.1 and Major depressive disorder, recurrent, mild F33.0 [facility] [employer] [facility] [address] [place] [address] 08/17/2024 Zara Clifford Generalized anxiety disorder F41.1 and Major depressive disorder, recurrent, mild F33.0 [facility] [employer] [facility] [address] [place] [address] 09/23/2024 Zraa Clifford Generalized anxiety disorder F41.1 and Major depressive disorder, recurrent, mild F33.0 [facility], [facility] [address] [place] [address] 11/18/2024 Zara Clifford Generalized anxiety disorder F41.1 and Major depressive disorder, recurrent, mild F33.0 [facility], [facility] [address] [place] [address] 01/20/2025 Zara Clifford Generalized anxiety disorder F41.1 and Major depressive disorder, recurrent, mild F33.0 [facility], [facility] [address] [place] [address] 04/16/2024 Provider Migration [facility], [facility] [address] [place] [address] 04/17/2024 Provider Migration [facility], [facility] [address] [place] [address] 08/15/2024 Singh Fisher [facility], [facility] [address] [place] [address] 08/28/2024 Zara Horton [facility], [facility] [address] [place] [address] 08/29/2024 Zara [facility], [facility] [address] [place] [address] 01/31/2025 Zara Clifford [facility], [facility] [address] [place] [address] 02/01/2025 Zara Clifford [facility], [place] [address] [place] [address] 03/08/2025 Zara Horton Major depressive disorder, recurrent, mild F33.0 [facility], [facility] [address] [place] [address] 03/08/2025 Zara Clifford Generalized anxiety disorder F41.1 Assessments Encounter Date Diagnosis (ICD Code) Assessment Notes Treatment Notes Treatment Clinical Notes Section Notes 07/15/2024 Generalized anxiety disorder (ICD-10 - F41.1) 08/17/2024 Generalized anxiety disorder (ICD-10 - F41.1) Common [...] alcohol, as this combination can be lethal. 09/23/2024 Generalized anxiety disorder (ICD-10 - F41.1) Common [...] can be lethal. MEDICATION SIDE EFFECTS: none 11/18/2024 Generalized anxiety disorder (ICD-10 - F41.1) Common [...] be lethal. MEDICATION SIDE EFFECTS: none 01/20/2025 Generalized anxiety disorder (ICD-10 - F41.1) [...] can be lethal. MEDICATION SIDE EFFECTS: none 03/08/2025 Major depressive disorder, recurrent, mild (ICD-10 - F33.0) 03/08/2025 Generalized anxiety disorder (ICD-10 - F41.1) 04/12/2024 Major depressive disorder, recurrent, mild (ICD-10 - F33.0) 04/12/2024 Generalized anxiety disorder (ICD-10 - F41.1) 05/23/2024 Generalized anxiety disorder (ICD-10 - F41.1) 05/23/2024 Recurrent major depressive disorder, remission status unspecified (ICD-10 - F33.9) 07/15/2024 Major depressive disorder, recurrent, mild (ICD-10 - F33.0) 01/20/2025 Major depressive disorder, recurrent, mild (ICD-10 - F33.0) Common side effects of Wellbutrin include insomnia, increased anxiety, nausea, dizziness, decreased appetite, restlessness, irritability and anger, increased sweating or hot flashes, tremors, joint pain. Wellbutrin is not recommended in individuals with a history of seizures. If side effects persist, please contact the office. MEDICATION SIDE EFFECTS: none 11/18/2024 Major depressive disorder, recurrent, mild (ICD-10 - F33.0) Common side effects of Wellbutrin include insomnia, increased anxiety, nausea, dizziness, decreased appetite, restlessness, irritability and anger, increased sweating or hot flashes, tremors, joint pain. Wellbutrin is not recommended in individuals with a history of seizures. If side effects persist, please contact the office. MEDICATION SIDE EFFECTS: none 09/23/2024 Major depressive disorder, recurrent, mild (ICD-10 - F33.0) Common side effects of Wellbutrin include insomnia, increased anxiety, nausea, dizziness, decreased appetite, restlessness, irritability and anger, increased sweating or hot flashes, tremors, joint pain. Wellbutrin is not recommended in individuals with a history of seizures. If side effects persist, please contact the office. MEDICATION SIDE EFFECTS: none 08/17/2024 Major depressive disorder, recurrent, mild (ICD-10 - F33.0) Common side effects of Wellbutrin include insomnia, increased anxiety, nausea, dizziness, decreased appetite, restlessness, irritability and anger, increased sweating or hot flashes, tremors, joint pain. Wellbutrin is not recommended in individuals with a history of seizures. If side effects persist, please contact the office. 07/15/2024 Other Stable, continue sertraline 50mg daily. Currently . Patient educated on all medications including potential benefits, side effects, risks. Educated on proper dosing schedule and importance of compliance. Offered counseling, pt declined at this time. 08/17/2024 Other Stopped -- Increase sertraline to 100mg daily. Start Wellbutrin 150mg daily-previously on this before and responded well. Start clonazepam 0.5mg qd PRN for anxiety, panic. Patient educated on all medications including potential benefits, side effects, risks. Educated on proper dosing schedule and importance of compliance. [place] PDMP report checked and consistent with prescription history, no controlled substance prescriptions from other providers. 09/23/2024 Other Continue current medications. Refills sent in. Patient educated on all medications including potential benefits, side effects, risks. Educated on proper dosing schedule and importance of compliance. MEDICATION SIDE EFFECTS: none 11/18/2024 Other Increase sertraline to 150mg daily for anxiety Patient educated on all medications including potential [...] prevention hotline 988. MEDICATION SIDE EFFECTS: none 01/20/2025 Other Declines [...] MEDICATION SIDE EFFECTS: none Plan Of Treatment Next Appt Details Provider Name:Zara Horton, 04/14/2025 08:15:00 AM, [address], [facility] [address], [place], [address], Insurance Providers Payer Name Payer Address Payer Phone Subscriber Number Group Number Insured Name Patient Relationship to Insured Coverage Start Date Coverage End Date [facility] [address] [address] [place] [address] [id number] ARINA CARLTON Self - patient is the insured Medical (General) History Medical History History ICD Code Problems: Generalized anxiety disorder Mild recurrent major depression Surgical History Surgery Date(Month/Year) [place] teeth removal 2016
[2025-03-29 09:35] LABS: Free T4 Free Thyroxine 0.94 ng/dL (0.78-2.19)
== END 2025-03-29 08:25 | disposition home or self-care (01) ==
LOC: ANHLAB 08:26
PROVIDERS: PCP Nurse Practitioner Adult Health; Visit Provider Nurse Practitioner Adult Health
DX: E06.3 Autoimmune thyroiditis (principal)
CPT/HCPCS: 36415; 84439; 84443